=== PATIENT | male | born 1960 | race Hispanic/Latino ===

== ENCOUNTER 2016-06-17 18:34 | Emergency (ER) | payer MEDICAID ==
[2016-06-17] MEDS ORDERED: XYLOCAINE 1% HCL 20 ML MDV ONE (19:21)
--- NOTE | 2016-06-17 19:22 | ERPHSYRPT ---
- History of Present Illness Time Seen by Provider: 06/17/16 19:00 Source: patient, family Exam Limitations: language barrier Patient Subjective Stated Complaint: lt index laceration Triage Nursing Assessment: cut lt index finger x2 on a chainsaw. approx 2cm laceration to lt thumb pad and approx 1cm laceration to lt outer index pad. bleeding on time of arrival. radial pulse present. no other injury Occurred: just prior to arrival Method of Injury: incised Quality: constant, sharpness Severity of Pain-Max: moderate Severity of Pain-Current: moderate Extremities Pain Location: 2nd finger: left (pad laceration) Modifying Factors: Improves With: movement Associated Symptoms: none Allergies/Adverse Reactions: No Known Drug Allergies Allergy (Unverified 06/17/16 18:45) Home Medications: Aspirin 81 mg PO DAILY 12/14/14 [History] Amiodarone HCl 200 mg PO DAILY 06/17/16 [History] Losartan Potassium 25 mg PO DAILY 06/17/16 [History] Metoprolol Tartrate 25 mg [Lopressor 25MG Tab] 12.5 mg PO BID 06/17/16 [ History] Rivaroxaban [Xarelto] 20 mg PO DAILY 06/17/16 [History] Spironolactone 25 mg [Aldactone 25 MG] 25 mg PO DAILY 06/17/16 [History] Hx Tetanus, Diphtheria Vaccination/Date Given: No Hx Influenza Vaccination/Date Given: No Hx Pneumococcal Vaccination/Date Given: No Immunizations Up to Date: No - Review of Systems Constitutional: No Symptoms Eyes: No Symptoms Ears, Nose, & Throat: No Symptoms Respiratory: No Symptoms Cardiac: No Symptoms Abdominal/Gastrointestinal: No Symptoms Genitourinary Symptoms: No Symptoms Musculoskeletal: No Symptoms Skin: No Symptoms Neurological: No Symptoms Psychological: No Symptoms Endocrine: No Symptoms Hematologic/Lymphatic: Easy Bleeding (D/T anticoagulant use) Immunological/Allergic: No Symptoms - Past Medical History Pertinent Past Medical History: Yes Neurological History: No Pertinent History ENT History: No Pertinent History Cardiac History: Arrhythmia, Hypertension, Other Respiratory History: No Pertinent History Endocrine Medical History: No Pertinent History Musculoskeletal History: No Pertinent History GI Medical History: No Pertinent History History: No Pertinent History Psycho-Social History: No Pertinent History Male Reproductive Disorders: No Pertinent History Other Medical History: unknown cardiac valve problems - Past Surgical History Past Surgical History: Yes Cardiac: CABG - Social History Smoking Status: Current every day smoker Exposure to second hand smoke: Yes Drug Use: none Patient Lives Alone: No - Nursing Vital Signs Nursing Vital Signs: Initial Vital Signs Temperature 98.8 F Temperature Source Oral Pulse Rate 70 Respiratory Rate 18 Blood Pressure [Right Arm] 129/72 Pain Intensity 2 - Physical Exam General Appearance: mild distress Eyes, Ears, Nose, Throat Exam: normal ENT inspection, pharynx normal Neck Exam: normal inspection, non-tender, supple, full range of motion Cardiovascular/Respiratory Exam: chest non-tender, normal breath sounds, regular rate/rhythm Abdominal Exam: non-tender, soft, no organomegaly Back Exam: normal inspection, normal range of motion Shoulder Exam: normal inspection, non-tender, no evidence of injury, normal ROM Elbow/Forearm Exam: normal inspection, non-tender, no evidence of injury, normal ROM Wrist Exam: normal inspection, non-tender, no evidence of injury, normal ROM Hand Exam: normal ROM, laceration (3 cm left index fingertip pad. No germinal matrix involvement) Neuro/Tendon Exam: normal sensation, normal motor functions, normal tendon functions, responds to pain, no evidence tendon injury Mental Status Exam: alert, oriented x 3, cooperative Skin Exam: normal color, warm, dry, laceration SpO2 Interpretation: normal SpO2: 97 Oxygen Delivery: Room Air Procedures - Laceration/Wound Repair Finger Wound Location: Left Wound Length (cm): 3 Wound's Depth, Shape: flap Wound Explored: clean Irrigated: Yes (saline and Hibiclens) Hibiclens Prep: Yes Anesthesia: digital block, 1% Lidocaine Volume Anesthetic (ccs): 6 Wound Debrided: minimal Wound Repaired With: sutures Suture Size/Type: 4-0 Number of Sutures: 7 Layer Closure?: No Sterile Dressing Applied?: Yes Splint Applied?: Yes Sling Applied?: No - Course Nursing assessment & vital signs reviewed: Yes - Radiology Exams Hand X-ray Interpretation: Interpreted by me, Reviewed by me, No Fracture ( Questionable lucency oblique in proximal phalanx left index finger, but doubtful Fx.) Ordered Tests: Active Orders 24 hr Category Date Time Status FINGER(S) Stat Exams 06/17/16 18:43 Taken - Progress Progress: improved Will see patient in: other (PCP 14 days for suture removal) Counseled pt/family regarding: diagnosis, need for follow-up, rad results - Departure Time of Disposition: 19:40 Departure Disposition: Home Clinical Impression: Finger laceration Qualifiers: Encounter type: initial encounter Qualified Code(s): S61.219A - Laceration without foreign body of unspecified finger without damage to nail, initial encounter Condition: Stable Critical Care Time: No Instructions: Care for a Laceration After Repair, Laceration Repair -- Finger Prescriptions: Cephalexin Mh 500 mg [Keflex 500 mg] 1 cap PO BID #14 capsule Hydrocodone Bit/Acetaminophen [[place] 5-325 Tablet] 1 each PO Q4-6HPRN PRN #20 tablet PRN Reason: Pain
[2016-06-17] MEDS ORDERED: BACIGUENT PACKET ONE (19:40)
[2016-06-17] MEDS ORDERED: Norco 10/325 MG Tablet PO ONE (19:46)
[2016-06-17] MEDS ORDERED: Adacel Vial IM ONE ×2 (19:46→19:49)
[2016-06-17] MEDS ORDERED: Norco 10/325 MG Tablet ONE (19:49)
[2016-06-17] MEDS ORDERED: BACIGUENT PACKET TP ONE (19:55)
[2016-06-17] MEDS ORDERED: XYLOCAINE 1% HCL 20 ML MDV IJ ONE (19:55)
[2016-06-17 20:05] VITALS: BP 110/51; PULSE 60; O2SAT 96
--- NOTE | 2016-06-18 08:44 | XRAY ---
Indication: Laceration. Comparison: None 3 views of the left second finger demonstrate overlying bandage material with small spur base of the proximal phalanx, moderate first metacarpal multangular degenerative changes, and tiny soft tissue foreign body at the base of the thumb. No other bony, articular, or soft tissue abnormalities.
== END 2016-06-17 20:05 | disposition home or self-care (01) ==
LOC: ED 18:34
PROC: 0HQGXZZ Repair Left Hand Skin, External Approach (ICD-10-PCS; principal; 2016-06-17)
DX: S61.211A Laceration without foreign body of left index finger without damage to nail, initial encounter (principal); S61.012A Laceration without foreign body of left thumb without damage to nail, initial encounter; W29.3XXA Contact with powered garden and outdoor hand tools and machinery, initial encounter
CPT/HCPCS: 12002; 73140; 90471; 90715; 99284; A9270-GY

== ENCOUNTER 2016-07-03 18:40 | Emergency (ER) | payer MEDICAID | END 2016-07-03 19:10 | disposition left against medical advice (07) | LOC: ED 18:40 | DX: Z53.9 Procedure and treatment not carried out, unspecified reason (principal) ==

== ENCOUNTER 2016-07-04 15:59 | Emergency (ER) | payer MEDICAID ==
--- NOTE | 2016-07-04 16:45 | ERPHSYRPT ---
- History of Present Illness Time Seen by Provider: 07/04/16 16:39 Source: patient Patient Subjective Stated Complaint: PT REPORTS HAVING SUTURES PLACED-STATES IT IS TIME FOR THEM TO BE REMOVED-DENIES PAIN-DENEIS DRAINAGE Triage Nursing Assessment: PT ALERT ET ANSWERING ALL QUESTIONS CORRECTLY- SUTURES NOTED TO LEFT FINGER Physician History: CC: suture removal Hx: 55 y/o male with sutures in left index finger for two weeks. He is here for removal. Tetanus vaccine was already given. No sign of infection. No other complaints. No N/T/W. Allergies/Adverse Reactions: No Known Drug Allergies Allergy (Verified 07/04/16 16:30) Home Medications: Aspirin 81 mg PO DAILY 12/14/14 [History] Amiodarone HCl 200 mg PO DAILY 06/17/16 [History] Losartan Potassium 25 mg PO DAILY 06/17/16 [History] Metoprolol Tartrate 25 mg [Lopressor 25MG Tab] 12.5 mg PO BID 06/17/16 [ History] Rivaroxaban [Xarelto] 20 mg PO DAILY 06/17/16 [History] Spironolactone 25 mg [Aldactone 25 MG] 25 mg PO DAILY 06/17/16 [History] Hx Tetanus, Diphtheria Vaccination/Date Given: Yes Hx Influenza Vaccination/Date Given: No Hx Pneumococcal Vaccination/Date Given: No Immunizations Up to Date: Yes - Review of Systems Constitutional: No Fever - Past Medical History Pertinent Past Medical History: Yes Neurological History: No Pertinent History ENT History: No Pertinent History Cardiac History: Arrhythmia, Hypertension, Other Respiratory History: No Pertinent History Endocrine Medical History: No Pertinent History Musculoskeletal History: No Pertinent History GI Medical History: No Pertinent History History: No Pertinent History Psycho-Social History: No Pertinent History Male Reproductive Disorders: No Pertinent History Other Medical History: unknown cardiac valve problems - Past Surgical History Past Surgical History: Yes Cardiac: CABG - Social History Smoking Status: Current every day smoker Exposure to second hand smoke: Yes Drug Use: none Patient Lives Alone: No - Nursing Vital Signs Nursing Vital Signs: Initial Vital Signs Temperature 97.7 F Temperature Source Oral Pulse Rate 63 Respiratory Rate 22 Blood Pressure [Right Arm] 117/64 Pain Intensity 0 - Physical Exam General Appearance: alert Eyes, Ears, Nose, Throat Exam: moist mucous membranes Cardiovascular/Respiratory Exam: regular rate/rhythm Mental Status Exam: alert, oriented x 3, cooperative Skin Exam: warm, dry SpO2: 96 Oxygen Delivery: Room Air Comments: left index finger has healing lacerations with sutures in place. ROm intact. Intact light touch sensation. No sign of infection. - Course Nursing assessment & vital signs reviewed: Yes Ordered Tests: Active Orders 24 hr Category Date Time Status Wound Care STAT Care 07/04/16 16:41 Active - Progress Progress Note: 07/04/16 16:44 Wound instr. Counseled pt/family regarding: diagnosis, need for follow-up - Departure Time of Disposition: 16:44 Departure Disposition: Home Clinical Impression: Visit for suture removal Condition: Stable Critical Care Time: No Referrals: Dionicio Weston MD [Primary Care Provider] - DOCTOR,NO FAMILY [NON-STAFF PHY W/O PRIVILEGES] - Instructions: Suture Removal Additional Instructions: Return for problems or concerns.
[2016-07-04 16:52] VITALS: BP 120/70; PULSE 70; O2SAT 97
== END 2016-07-04 16:52 | disposition home or self-care (01) ==
LOC: ED 15:59
DX: Z48.02 Encounter for removal of sutures (principal)
CPT/HCPCS: 99281

== ENCOUNTER 2017-05-22 10:43 | Emergency (ER) | payer MEDICAID, OTHER ==
[2017-05-22 10:58] VITALS: O2SAT 98
[2017-05-22] MEDS ORDERED: XYLOCAINE 1% HCL 20 ML MDV IJ ONE (11:13)
[2017-05-22] MEDS ORDERED: BACIGUENT PACKET TP ONE (11:13)
[2017-05-22] MEDS ORDERED: CLEOCIN 150 MG CAPSULE PO ONE (11:17)
[2017-05-22] MEDS ORDERED: BACIGUENT PACKET ONE (11:20)
[2017-05-22] MEDS ORDERED: CLEOCIN 150 MG CAPSULE ONE (11:21)
[2017-05-22] MEDS ORDERED: XYLOCAINE 1% HCL 20 ML MDV ONE (11:21)
--- NOTE | 2017-05-22 11:25 | ERPHSYRPT ---
- History of Present Illness Time Seen by Provider: 05/22/17 11:10 Source: patient Exam Limitations: no limitations Patient Subjective Stated Complaint: Pt states "I Am not sure what I did, but I injured it 3 days ago.. I am not sure if there is anything in there or not." Triage Nursing Assessment: Pt alert and oriented X 3, skin pwd Pt ambulates without any difficulty, able to speak in clear full sentences. Right little finger has two wounds on it, red, swollen. Physician History: THREE DAYS AGO PT WAS IN HIS YARD AND A STICK PUNCTURED HIS RIGHT LITTLE FINGER WITH RESULTANT TENDERNESS, ERYTHEMA AND SWELLING. PT TRIED TO GET THE STICK OUT BUT COULD NOT GET ALL OF IT OUT. PT DENIES FEVER, CHILLS, DIAPHORESIS, NAUSEA, VOMITING, CHEST PAIN. Allergies/Adverse Reactions: No Known Drug Allergies Allergy (Verified 07/04/16 16:30) Home Medications: Aspirin 81 mg PO DAILY 12/14/14 [History] Amiodarone HCl 200 mg PO DAILY 06/17/16 [History] Losartan Potassium 25 mg PO DAILY 06/17/16 [History] Metoprolol Tartrate 25 mg [Lopressor 25MG Tab] 12.5 mg PO BID 06/17/16 [ History] Rivaroxaban [Xarelto] 20 mg PO DAILY 06/17/16 [History] Spironolactone 25 mg [Aldactone 25 MG] 25 mg PO DAILY 06/17/16 [History] Hx Tetanus, Diphtheria Vaccination/Date Given: Yes Hx Influenza Vaccination/Date Given: Yes Hx Pneumococcal Vaccination/Date Given: Yes Immunizations Up to Date: Yes - Review of Systems Constitutional: No Fever, No Chills Cardiac: No Chest Pain Abdominal/Gastrointestinal: No Vomiting Musculoskeletal: Other (SWELLING, TENDERNESS AND ERYTHEMA OF RIGHT SMALL FINGER) All Other Systems: Reviewed and Negative - Past Medical History Pertinent Past Medical History: Yes Neurological History: No Pertinent History ENT History: No Pertinent History Cardiac History: Arrhythmia, Hypertension, Other Respiratory History: No Pertinent History Endocrine Medical History: No Pertinent History Musculoskeletal History: No Pertinent History GI Medical History: No Pertinent History History: No Pertinent History Psycho-Social History: No Pertinent History Male Reproductive Disorders: No Pertinent History Other Medical History: unknown cardiac valve problems - Past Surgical History Past Surgical History: Yes Cardiac: CABG - Social History Smoking Status: Current every day smoker How long have you smoked: years Exposure to second hand smoke: Yes Drug Use: none Patient Lives Alone: No - Nursing Vital Signs Nursing Vital Signs: Initial Vital Signs Temperature 98.2 F 05/22/17 10:53 Pulse Rate 60 05/22/17 10:53 Respiratory Rate 18 05/22/17 10:53 Blood Pressure 115/72 05/22/17 10:53 O2 Sat by Pulse Oximetry 98 05/22/17 10:53 Pain Scale Pain Intensity 4 - Physical Exam General Appearance: alert Shoulder Exam: normal ROM Elbow/Forearm Exam: normal ROM Wrist Exam: normal ROM Hand Exam: normal ROM, swelling (DISTAL PHALYNX OF RIGHT SMALL FINGER IS MILDLY TENDER, EDEMATOUS AND ERYTHEMATOUS BUT WITH GOOD CAPILLARY REFILL AND SENSATION. ) Mental Status Exam: alert, cooperative SpO2 Interpretation: normal SpO2: 98 Oxygen Delivery: Room Air - Course Nursing assessment & vital signs reviewed: Yes - Radiology Exams Right Other X-ray Interpretation: Interpreted by me (NO F.B. SEEN(POST SPLINTER REMOVAL) OR FX OF RIGHT SMALL FINGER.) Ordered Tests: Active Orders 24 hr Category Date Time Status Wound Care STAT Care 05/22/17 11:13 Active FINGER(S) Stat Exams 05/22/17 12:04 Taken Medication Summary Discontinued Medications Generic Name Dose Route Start Last Admin Trade Name Melinda PRN Reason Stop Dose Admin Bacitracin 0.9 gm 05/22/17 11:13 05/22/17 11:27 Baciguent Packet TP 05/22/17 11:14 0.9 gm STAT ONE Administration Bacitracin Confirm 05/22/17 11:20 Baciguent Packet Administered 05/22/17 11:21 Dose 1 gm .ROUTE .STK-MED ONE Ceftriaxone Sodium 1,000 mg 05/22/17 11:42 05/22/17 11:46 Rocephin 1000 Mg Inj IM 05/22/17 11:43 1,000 mg STAT ONE Administration Ceftriaxone Sodium Confirm 05/22/17 11:44 Rocephin 1000 Mg Inj Administered 05/22/17 11:45 Dose 1,000 mg .ROUTE .STK-MED ONE Clindamycin HCl 300 mg 05/22/17 11:17 05/22/17 11:27 Cleocin 150 Mg Capsule PO 05/22/17 11:18 300 mg STAT ONE Administration Clindamycin HCl Confirm 05/22/17 11:21 Cleocin 150 Mg Capsule Administered 05/22/17 11:22 Dose 300 mg .ROUTE .STK-MED ONE Lidocaine HCl 5 ml 05/22/17 11:13 05/22/17 11:27 Xylocaine 1% Hcl 20 Ml Mdv IJ 05/22/17 11:14 5 ml STAT ONE Administration Lidocaine HCl Confirm 05/22/17 11:21 Xylocaine 1% Hcl 20 Ml Mdv Administered 05/22/17 11:22 Dose 1 ml .ROUTE .STK-MED ONE - Progress Progress Note: 05/22/17 11:49 LATERAL ASPECT OF THE DISTAL PHALYNX OF THE RIGHT SMALL FINGER: 1% LIDOCAINE, HIBICLENS, STERILE WATER, #11 SCALPEL, 1.5 CM WOODEN SPLINTER REMOVED WITH FORCEPS, IRRIGATION WITH STERILE WATER. - Departure Time of Disposition: 12:07 Departure Disposition: Home Clinical Impression: CELLULITIS OF THE RIGHT SMALL FINGER, SPLINTER REMOVAL FROM RIGHT SMALL FINGER Condition: Stable Critical Care Time: No Instructions: Cellulitis (Skin Infection), Adult (DC) Additional Instructions: FOLLOW UP WITH PRIVATE DOCTOR TOMORROW. NEOSPORIN & BANDAGE DAILY TO RIGHT SMALL FINGER WOUND FOR THE NEXT 10 DAYS. KEEP CLEAN & DRY. Prescriptions: Clindamycin HCl 300 mg PO Q6H #40 capsule
[2017-05-22] MEDS ORDERED: Rocephin 1000 MG INJ IM ONE (11:42)
[2017-05-22] MEDS ORDERED: Rocephin 1000 MG INJ ONE (11:44)
[2017-05-22 11:52] VITALS: PULSE 62
[2017-05-22 12:10] VITALS: BP 116/70
--- NOTE | 2017-05-22 22:52 | XRAY ---
Indication: Laceration. Comparison: None 3 views of the right 5th finger demonstrates distal laceration. No other bony, articular, or soft tissue abnormalities.
== END 2017-05-22 12:16 | disposition home or self-care (01) ==
LOC: ED 10:43
DX: L03.011 Cellulitis of right finger (principal); S60.456A Superficial foreign body of right little finger, initial encounter
CPT/HCPCS: 73140; 96372; 99283; J0696; A9270-GY

== ENCOUNTER 2021-01-19 07:07 | Observation (INO) | payer SELFPAY ==
[2021-01-19] MEDS ORDERED: Sodium Chloride 0.9% 1000 ML 1,000 ML IV SCH ×2 (07:15→22:45)
[2021-01-19] MEDS ORDERED: BABY ASPIRIN 81 MG CHEW PO ONE (07:15)
[2021-01-19] MEDS ORDERED: DUONEB 0.5-3 MG/3 ml Neb IH ONE ×2 (07:15→07:19)
[2021-01-19] MEDS ORDERED: solu-MEDROL 125 MG, Sterile H2O 10 ml 2 ML IV ONE ×2 (07:19)
[2021-01-19 07:36] LABS: Absolute Neutrophil Ct (ANC) 11.43 (1.4-6.9); BASOPHIL % 0.4 % (0.0-0.4); Basophil (Absolute #) 0.05 (0-0.4); Eosinophil % 0.2 % (0.00-5.0); Eosinophil (Absolute #) 0.03 (0-0.5); Hematocrit 50.1 % (42-50); Hemoglobin 16.5 gm/dl (12.5-18.0); Lymphocyte (Absolute #) 0.91 (1.0-4.6); Lymphocytes % 6.5 % (24.0-44.0); Mean Cell Volume 91.9 fl (78-100); Mean Corpuscular Hemoglobin 30.3 pg (26-32); Mean Corpuscular Hgb Concent. 32.9 g/dl (32-36); Mean Platelet Volume 10.3 fl (7.5-11.0); Monocyte (Absolute #) 1.51 (0.0-1.3); Monocytes % 10.8 % (0.0-12.0); Neutrophil % 82.1 % (36.0-66.0); Platelet Count 251 K/mm3 (150-450); Red Blood Count 5.45 M/mm3 (4.1-5.6); Red Cell Distribution Width 13.5 % (11.5-14.0); White Blood Count 13.9 K/mm3 (4.0-10.5)
[2021-01-19] MEDS ORDERED: Sodium Chloride 0.9% 1000 ML 1,000 ML ONE (07:38)
[2021-01-19] MEDS ORDERED: solu-MEDROL ONE ×2 (07:38→17:36)
[2021-01-19] MEDS ORDERED: BABY ASPIRIN 81 MG CHEW ONE (07:38)
[2021-01-19] MEDS ORDERED: Sterile H2O 10 ml IJ ONE (07:38)
--- NOTE | 2021-01-19 07:49 | XRAY ---
Indication: Cough and short of breath. Suspect Covid 19. Comparison: March 25, 2013. Portable apical lordotic chest again hyperinflated with new subtle left midlung patchy interstitial opacity. Remaining lungs clear. Heart not enlarged with interval cardiac valve replacement surgery. Bony thorax intact.
--- NOTE | 2021-01-19 07:50 | ERPHSYRPT ---
- History of Present Illness Time Seen by Provider: 01/19/21 07:15 Source: patient Exam Limitations: no limitations Patient Subjective Stated Complaint: Patient c/o cough and SOB that started on 01/17/21. Denies fever, N/V, body aches, fatigue, changes/loss of taste or smell. Does state that he has chest pain in the center of his chest when he coughs. He rates this pain as a 2-3 on 0-10 scale. Triage Nursing Assessment: Patient ambulated back to ED. He is alert and oriented and able to answer questions appropriately. Patient sitting up in bed due to increased SOB when lying flat. Wheezes noted thoughrought lung stone. Non-productive cough noted. Physician History: Patient is a 60-year-old white male who presents with a complaint of shortness of breath and cough for 3 days. He denies fever chills sweats he denies loss of taste or smell or headache. He does have a history of valve replacement x2 and is on Xarelto. He has a history of hypertension. His pain is substernal does not radiate and is increased by deep breath or cough. He is a pack-a-day smoker for many years Timing/Duration: day(s) (3) Activities at Onset: none Severity of Dyspnea-Max: moderate Severity of Dyspnea-Current: moderate Possible Cause: occasional episodes Modifying Factors: Improves With: coughing, deep breath, lying down Associated Symptoms: cough, chest pain/discomfort, wheezing, weakness, painful breathing Allergies/Adverse Reactions: No Known Drug Allergies Allergy (Verified 01/19/21 07:21) Home Medications: Aspirin 81 mg PO DAILY 12/14/14 [History] Amiodarone HCl 200 mg PO DAILY 06/17/16 [History] Losartan Potassium 25 mg PO DAILY 06/17/16 [History] Rivaroxaban [Xarelto] 20 mg PO DAILY 06/17/16 [History] Spironolactone 25 mg [Aldactone 25 MG] 25 mg PO DAILY 06/17/16 [History] Metoprolol Succinate 50 mg [Toprol Xl 50 MG] 50 mg PO DAILY 01/19/21 [History] Hx Tetanus, Diphtheria Vaccination/Date Given: Yes Hx Influenza Vaccination/Date Given: No Hx Pneumococcal Vaccination/Date Given: No Immunizations Up to Date: Yes Travel Risk - International Travel Have you traveled outside of the country in past 3 weeks: No - Coronavirus Screening Are you exhibiting any of the following symptoms?: Yes Symptoms: Cough: New Onset, Shortness of Breath Close contact with a COVID-19 positive Pt in past 14-21 Days: No - Vaccine Status Have you recieved a Covid-19 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: 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 - Vaccination Dates Dates if Unknown: unknown Comment: States took 2 shots at the [facility] but is unsure of the supervisor [employer] - Review of Systems Constitutional: No Fever, No Chills Eyes: No Symptoms Ears, Nose, & Throat: No Symptoms Respiratory: Cough, Dyspnea, Wheezing Cardiac: Chest Pain, No Edema, No Syncope Abdominal/Gastrointestinal: No Abdominal Pain, No Nausea, No Vomiting, No Diarrhea Genitourinary Symptoms: No Dysuria Musculoskeletal: No Back Pain, No Neck Pain Skin: No Rash Neurological: No Dizziness, No Focal Weakness, No Sensory Changes Psychological: No Symptoms Endocrine: No Symptoms All Other Systems: Reviewed and Negative - Past Medical History Pertinent Past Medical History: Yes Neurological History: No Pertinent History ENT History: No Pertinent History Cardiac History: Arrhythmia, Coronary Artery Disease, Hypertension, Other Respiratory History: No Pertinent History Endocrine Medical History: No Pertinent History Musculoskeletal History: No Pertinent History GI Medical History: No Pertinent History History: No Pertinent History Psycho-Social History: No Pertinent History Male Reproductive Disorders: No Pertinent History Other Medical History: unknown cardiac valve problems - Past Surgical History Past Surgical History: Yes Cardiac: CABG - Social History Smoking Status: Current every day smoker How long have you smoked: 40 Exposure to second hand smoke: Yes Drug Use: none Patient Lives Alone: No - Nursing Vital Signs Nursing Vital Signs: Initial Vital Signs Temperature 97.5 F 01/19/21 07:08 Pulse Rate 90 01/19/21 07:08 Respiratory Rate 24 01/19/21 07:08 Blood Pressure 140/78 01/19/21 07:08 O2 Sat by Pulse Oximetry 94 L 01/19/21 07:08 Pain Scale Pain Intensity 3 - Physical Exam General Appearance: mild distress Eye Exam: PERRL/EOMI Ears, Nose, Throat Exam: hearing grossly normal, normal ENT inspection Neck Exam: normal inspection, supple Respiratory Exam: respiratory distress, airway intact, diminished breath sounds, accessory muscle use, prolonged expirations, rhonchi, wheezing Cardiovascular/Chest Exam: normal heart sounds, regular rate/rhythm, other (Median sternotomy scar) Abdominal/Gastrointestinal Exam: soft, normal bowel sounds, tenderness Rectal Exam: deferred Extremity Exam: non-tender, normal range of motion, normal inspection Neurologic Exam: alert, oriented x 3, cooperative, nml station & gait Skin Exam: normal color, warm, dry Lymphatic Exam: No adenopathy SpO2 Interpretation: normal SpO2: 94 O2 Delivery: Room Air - Course Nursing assessment & vital signs reviewed: Yes - Radiology Exams Chest X-ray Interpretation: Reviewed by me, Pneumonia (Developing infiltrate in the left middle lobe) Ordered Tests: Active Orders 24 hr Category Date Time Status EKG-ER Only STAT Care 01/19/21 07:15 Active IV Insertion STAT Care 01/19/21 07:15 Active CHEST 1 VIEW (PORTABLE) Stat Exams 01/19/21 07:38 Completed BLOOD CULTURE Stat Lab 01/19/21 07:59 Received CBC W DIFF Stat Lab 01/19/21 07:15 Completed CMP Stat Lab 01/19/21 07:15 Completed D-DIMER QUANTITATIVE Stat Lab 01/19/21 07:15 Completed LIPASE Stat Lab 01/19/21 07:15 Completed Lactic Acid Stat Lab 01/19/21 07:15 Completed Lactic Acid Stat Lab 01/19/21 07:19 Ordered MAGNESIUM Stat Lab 01/19/21 07:15 Completed NT PRO BNP Stat Lab 01/19/21 07:15 Completed PROTIME WITH INR Stat Lab 01/19/21 07:15 Completed TROPONIN Q3H Lab 01/19/21 07:15 Completed TROPONIN Q3H Lab 01/19/21 10:30 Ordered TROPONIN Q3H Lab 01/19/21 13:30 Ordered TROPONIN Q3H Lab 01/19/21 16:30 Ordered TROPONIN Q3H Lab 01/19/21 19:30 Ordered UA W/RFX UR CULTURE Stat Lab 01/19/21 07:16 Ordered Respiratory Therapy Assessment ONCE RT 01/19/21 07:43 Active Medication Summary Generic Name Dose Route Start Last Admin Trade Name Freq PRN Reason Stop Dose Admin Sodium Chloride 1,000 mls @ 50 mls/hr 01/19/21 07:15 01/19/21 07:40 Sodium Chloride 0.9% 1000 Ml IV 02/18/21 07:14 50 mls/hr .Q20H ANJUM Administration Ceftriaxone Sodium/Dextrose 1 g in 50 mls @ 100 mls/hr 01/19/21 08:26 01/19/21 08:42 Rocephin 1 Gm-D5w 50 Ml Bag IV 01/19/21 08:55 100 mls/hr STAT STA 100 mls/hr Administration Discontinued Medications Generic Name Dose Route Start Last Admin Trade Name Melinda PRN Reason Stop Dose Admin Albuterol/Ipratropium Confirm 01/19/21 07:15 Ipratropium/Albuterol Sulfate 3 Ml Ampul.Neb Administered 01/19/21 07:16 Dose 3 ml IH .STK-MED ONE Albuterol/Ipratropium 3 ml 01/19/21 07:19 01/19/21 07:10 Ipratropium/Albuterol Sulfate 3 Ml Ampul.Neb IH 01/19/21 07:20 3 ml STAT ONE Administration Aspirin 324 mg 01/19/21 07:15 01/19/21 07:41 Aspirin 81 Mg Tab.Chew PO 01/19/21 07:16 324 mg STAT ONE Administration Aspirin Confirm 01/19/21 07:38 Aspirin 81 Mg Tab.Chew Administered 01/19/21 07:39 Dose 324 mg .ROUTE .STK-MED ONE Methylprednisolone Sodium 0 mg 01/19/21 07:19 01/19/21 07:40 Succinate 125 mg/ Sterile IV 01/19/21 07:20 125 mg Water 2 ml STAT ONE Administration Ceftriaxone Sodium/Dextrose Confirm 01/19/21 08:41 Rocephin 1 Gm-D5w 50 Ml Bag Administered 01/19/21 08:42 Dose 1 g in 50 mls @ ud IV .STK-MED ONE Methylprednisolone Sodium Succinate Confirm 01/19/21 07:38 Methylprednis Sod Succ 125 Mg/2 Ml Vial Administered 01/19/21 07:39 Dose 125 mg .ROUTE .STK-MED ONE Sterile Water Confirm 01/19/21 07:38 Water For Injection,Sterile 10 Ml Vial Administered 01/19/21 07:39 Dose 10 ml IJ .STK-MED ONE Lab/Rad Data: Laboratory Result Diagrams 01/19/21 07:15 01/19/21 07:15 Laboratory Results 01/19/21 01/19/21 01/19/21 Range/Units 07:34 07:15 07:15 WBC (4.0-10.5) K/mm3 RBC (4.1-5.6) M/mm3 Hgb (12.5-18.0) gm/dl Hct (42-50) % MCV (78-100) fl MCH (26-32) pg MCHC (32-36) g/dl RDW (11.5-14.0) % Plt Count (150-450) K/mm3 MPV (7.5-11.0) fl Gran % (36.0-66.0) % Eos # (Auto) (0-0.5) Absolute Lymphs (auto) (1.0-4.6) Absolute Monos (auto) (0.0-1.3) Lymphocytes % (24.0-44.0) % Monocytes % (0.0-12.0) % Eosinophils % (0.00-5.0) % Basophils % (0.0-0.4) % Absolute Granulocytes (1.4-6.9) Basophils # (0-0.4) PT 16.6 H (9.4-12.5) SECONDS INR 1.41 (0.8-3.0) D-Dimer 314 (215-500) ng/mL Sodium (137-145) mmol/L Potassium (3.5-5.1) mmol/L Chloride (98-107) mmol/L Carbon Dioxide (22-30) mmol/L Anion Gap (5-15) MEQ/L BUN (9-20) mg/dL Creatinine (0.66-1.25) mg/dL Estimated GFR ML/MIN Glucose (74-106) mg/dL Lactic Acid (0.4-2.0) Calcium (8.4-10.2) mg/dL Magnesium (1.6-2.3) mg/dL Total Bilirubin (0.2-1.3) mg/dL AST (17-59) U/L ALT (0-50) U/L Alkaline Phosphatase (38-126) U/L Troponin I < 0.012 (0.000-0.034) ng/mL NT-Pro-B Natriuret Pep (0-900) pg/mL Serum Total Protein (6.3-8.2) g/dL Albumin (3.5-5.0) g/dL Lipase (23-300) U/L Influenza Type A Ag NEGATIVE (NEGATIVE) Influenza Type B Ag NEGATIVE (NEGATIVE) RSV (PCR) POSITIVE (Negative) SARS-CoV-2 (PCR) NEGATIVE (NEGATIVE) Slides for Path Review 01/19/21 01/19/21 01/19/21 Range/Units 07:15 07:15 07:15 WBC 13.9 H (4.0-10.5) K/mm3 RBC 5.45 (4.1-5.6) M/mm3 Hgb 16.5 (12.5-18.0) gm/dl Hct 50.1 H (42-50) % MCV 91.9 (78-100) fl MCH 30.3 (26-32) pg MCHC 32.9 (32-36) g/dl RDW 13.5 (11.5-14.0) % Plt Count 251 (150-450) K/mm3 MPV 10.3 (7.5-11.0) fl Gran % 82.1 H (36.0-66.0) % Eos # (Auto) 0.03 (0-0.5) Absolute Lymphs (auto) 0.91 L (1.0-4.6) Absolute Monos (auto) 1.51 H (0.0-1.3) Lymphocytes % 6.5 L (24.0-44.0) % Monocytes % 10.8 (0.0-12.0) % Eosinophils % 0.2 (0.00-5.0) % Basophils % 0.4 (0.0-0.4) % Absolute Granulocytes 11.43 H (1.4-6.9) Basophils # 0.05 (0-0.4) PT (9.4-12.5) SECONDS INR (0.8-3.0) D-Dimer (215-500) ng/mL Sodium 132 L (137-145) mmol/L Potassium 4.9 (3.5-5.1) mmol/L Chloride 100 (98-107) mmol/L Carbon Dioxide 23 (22-30) mmol/L Anion Gap 14.5 (5-15) MEQ/L BUN 15 (9-20) mg/dL Creatinine 1.12 (0.66-1.25) mg/dL Estimated GFR > 60.0 ML/MIN Glucose 108 H (74-106) mg/dL Lactic Acid 1.1 (0.4-2.0) Calcium 9.3 (8.4-10.2) mg/dL Magnesium 2.2 (1.6-2.3) mg/dL Total Bilirubin 1.40 H (0.2-1.3) mg/dL AST 34 (17-59) U/L ALT 16 (0-50) U/L Alkaline Phosphatase 75 (38-126) U/L Troponin I (0.000-0.034) ng/mL NT-Pro-B Natriuret Pep 531 (0-900) pg/mL Serum Total Protein 8.1 (6.3-8.2) g/dL Albumin 4.7 (3.5-5.0) g/dL Lipase 31 (23-300) U/L Influenza Type A Ag (NEGATIVE) Influenza Type B Ag (NEGATIVE) RSV (PCR) (Negative) SARS-CoV-2 (PCR) (NEGATIVE) Slides for Path Review YES - Progress Progress: improved Air Movement: good Blood Culture(s) Obtained: Yes Antibiotics given: Yes Discussed with : Eric Will see patient in: hospital (observation) - Departure Departure Disposition: Observation Clinical Impression: COPD exacerbation Condition: Stable Critical Care Time: No Referrals: DOCTOR,NO FAMILY [Primary Care Provider] - Follow up/PCP as directed Instructions: Chronic Obstructive Pulmonary Disease
[2021-01-19 08:01] LABS: ALBUMIN 4.7 g/dL (3.5-5.0); ALKALINE PHOSPHATASE 75 U/L (38-126); ANION GAP 14.5 MEQ/L (5-15); BLOOD UREA NITROGEN 15 mg/dL (9-20); CHLORIDE 100 mmol/L (98-107); Calcium 9.3 mg/dL (8.4-10.2); Carbon Dioxide 23 mmol/L (22-30); Creatinine 1 1.12 mg/dL (0.66-1.25); EST GLOMERULAR FILTRATION RATE > 60.0 ML/MIN; Glucose 108 mg/dL (74-106); LIPASE 31 U/L (23-300); MAGNESIUM 2.2 mg/dL (1.6-2.3); NT PRO BNP 531 pg/mL (0-900); Potassium 4.9 mmol/L (3.5-5.1); SGOT/AST 34 U/L (17-59); SGPT/ALT 16 U/L (0-50); SODIUM 132 mmol/L (137-145); Total Protein 8.1 g/dL (6.3-8.2)
[2021-01-19 08:16] LABS: INFLUENZA A NEGATIVE (NEGATIVE); INFLUENZA B NEGATIVE (NEGATIVE); SARS-CoV-2 Xpert Express NEGATIVE (NEGATIVE)
[2021-01-19 08:22] LABS: RESPIRATORY SYNCTIAL VIRUS POSITIVE (Negative)
[2021-01-19 08:23] LABS: INR 1.41 (0.8-3.0); PROTIME 16.6 SECONDS (9.4-12.5)
[2021-01-19] MEDS ORDERED: ROCEPHIN 1 Gm-D5w 50 ml Bag** 1 G/50 ML IVPB IV STA (08:26)
[2021-01-19 08:31] LABS: Slide Review 1 YES
[2021-01-19] MEDS ORDERED: ROCEPHIN 1 Gm-D5w 50 ml Bag** 1 G/50 ML IVPB IV ONE (08:41)
[2021-01-19] MEDS: Cozaar 50 MG PO SCH (12:32)
[2021-01-19] MEDS: PROVENTIL 2.5 MG/3 ML NEB IH SCH ×4 (12:32→22:05)
[2021-01-19] MEDS: Aldactone 25 MG PO SCH (12:33)
[2021-01-19] MEDS: XARELTO 10 MG TABLET PO SCH (12:33)
[2021-01-19] MEDS: Toprol Xl 50 MG PO SCH (12:33)
[2021-01-19] MEDS: Cordarone 200 MG PO SCH (12:33)
[2021-01-19] MEDS: solu-MEDROL 60 MG, Sterile H2O 10 ml 2 ML IV SCH ×6 (12:34→23:00)
[2021-01-19 19:31] LABS: Appearance SLIGHTLY CLOUDY (CLEAR); Bacteria NONE SEEN /HPF (NEGATIVE); Bilirubin NEGATIVE (NEGATIVE); Blood MODERATE Ery/ul (0-5); Glucose >=500 mg/dL (NEGATIVE); Ketones SMALL (NEGATIVE); Leukocyte Esterase NEGATIVE (NEGATIVE); Mucus SLIGHT /HPF (NEGATIVE); Nitrite NEGATIVE (NEGATIVE); Protein,Urine Dip 100 (Negative); Specific Gravity 1.024 (1.005-1.025); Urobilinogen 2 mg/dL (0-1); WBC 0-2 /HPF (0-5)
[2021-01-19] MEDS ORDERED: Robitussin-Dm Syrup PO PRN (22:41)
--- NOTE | 2021-01-19 23:19 | PCM.HP ---
History of Present Illness - Chief Complaint Chief Complaint: COPD EXACERBATION, RSV History of Present Illness: is a 60 year old male who presented to ER c/o cough and sob x 3 days, c/o chest pain mid sternal with cough,denies fever or loss of taste or smell.ER work up showed RSV left mid lobe pneumonia.Patient has Hx heart valve replacement and is an every day smoker. - Review of Systems Constitutional: Fatigue (from coughing) Eyes: No Symptoms Ears, Nose, & Throat: No Symptoms Respiratory: Cough, Short Of Breath, Wheezing Cardiac: Other (no chest pain on exertion,no edema) Abdominal/Gastrointestinal: No Symptoms Genitourinary Symptoms: No Symptoms Musculoskeletal: No Symptoms Skin: No Symptoms Neurological: No Symptoms Psychological: No Symptoms Endocrine: No Symptoms Hematologic/Lymphatic: No Symptoms, Other (is on blood thinner -heart) Medications & Allergies Home Medications: Home Medication List Aspirin 81 mg PO DAILY 12/14/14 [History Confirmed 01/19/21] Amiodarone HCl 200 mg PO DAILY 06/17/16 [History Confirmed 01/19/21] Losartan Potassium 25 mg PO DAILY 06/17/16 [History Confirmed 01/19/21] Rivaroxaban [Xarelto] 20 mg PO DAILY 06/17/16 [History Confirmed 01/19/21] Spironolactone 25 mg [Aldactone 25 MG] 25 mg PO DAILY 06/17/16 [History Confirmed 01/19/21] Metoprolol Succinate 50 mg [Toprol Xl 50 MG] 50 mg PO DAILY 01/19/21 [History Confirmed 01/19/21] Allergies/Adverse Reactions: Allergies Allergy/AdvReac Type Severity Reaction Status Date / Time No Known Drug Allergies Allergy Verified 01/19/21 07:21 - Past Medical History Past Medical History: Yes Neurological History: No Pertinent History ENT History: No Pertinent History Cardiac History: Arrhythmia, Coronary Artery Disease, Hypertension, Other Respiratory History: COPD Endocrine Medical History: No Pertinent History Musculoskelatal History: No Pertinent History GI Medical History: No Pertinent History History: No Pertinent History Pyscho-Social History: No Pertinent History Male Reproductive Disorders: No Pertinent History Comment: problems with 2 valves in his heart - Past Surgical History Past Surgical History: Yes Neuro Surgical History: No Pertinent History Cardiac History: CABG Respiratory Surgery: No Pertinent History GI Surgical History: No Pertinent History Genitourinary Surgical Hx: No Pertinent History Musculskeletal Surgical Hx: No Pertinent History Male Surgical History: No Pertinent History - Social History Smoking Status: Current every day smoker How long have you smoked: 40 Exposure to second hand smoke: Yes Alcohol: Occasionally Drug Use: none - Physical Exam Vital Signs: Vital Signs - 24 hr Temp Pulse Resp BP Pulse Ox 01/19/21 22:07 63 18 93 L 01/19/21 20:00 97.5 F 68 18 100/59 92 L 01/19/21 18:54 63 18 92 L 01/19/21 17:36 96 01/19/21 16:00 97.5 F 66 21 98/57 93 L 01/19/21 15:46 72 18 95 01/19/21 12:32 68 21 96 01/19/21 12:00 97.5 F 65 23 104/64 93 L 01/19/21 11:28 97.5 F 73 22 107/56 94 L 01/19/21 09:00 73 22 107/56 94 L 01/19/21 08:56 94 L 01/19/21 08:36 76 18 99/63 92 L 01/19/21 07:43 76 22 91 L 01/19/21 07:08 97.5 F 90 24 140/78 94 L General Appearance: no apparent distress Neurologic Exam: alert, oriented x 3, cooperative, normal mood/affect Eye Exam: eyes nml inspection Ears, Nose, Throat Exam: normal ENT inspection Neck Exam: normal inspection Respiratory Exam: rhonchi (scattered,loose), wheezing (eew throughout bilateral lungs) Cardiovascular Exam: regular rate/rhythm, murmur Gastrointestinal/Abdomen Exam: soft (nontender) Rectal Exam: not done Back Exam: normal inspection Extremity Exam: normal inspection Skin Exam: normal color, warm, dry Results - Labs Lab/Micro Results: Lab Results-Last 24 Hours 01/19/21 01/19/21 01/19/21 Range/Units 07:15 07:15 07:15 WBC 13.9 H (4.0-10.5) K/mm3 RBC 5.45 (4.1-5.6) M/mm3 Hgb 16.5 (12.5-18.0) gm/dl Hct 50.1 H (42-50) % MCV 91.9 (78-100) fl MCH 30.3 (26-32) pg MCHC 32.9 (32-36) g/dl RDW 13.5 (11.5-14.0) % Plt Count 251 (150-450) K/mm3 MPV 10.3 (7.5-11.0) fl Gran % 82.1 H (36.0-66.0) % Eos # (Auto) 0.03 (0-0.5) Absolute Lymphs (auto) 0.91 L (1.0-4.6) Absolute Monos (auto) 1.51 H (0.0-1.3) Lymphocytes % 6.5 L (24.0-44.0) % Monocytes % 10.8 (0.0-12.0) % Eosinophils % 0.2 (0.00-5.0) % Basophils % 0.4 (0.0-0.4) % Absolute Granulocytes 11.43 H (1.4-6.9) Basophils # 0.05 (0-0.4) PT (9.4-12.5) SECONDS INR (0.8-3.0) D-Dimer (215-500) ng/mL Sodium 132 L (137-145) mmol/L Potassium 4.9 (3.5-5.1) mmol/L Chloride 100 (98-107) mmol/L Carbon Dioxide 23 (22-30) mmol/L Anion Gap 14.5 (5-15) MEQ/L BUN 15 (9-20) mg/dL Creatinine 1.12 (0.66-1.25) mg/dL Estimated GFR > 60.0 ML/MIN Glucose 108 H (74-106) mg/dL Lactic Acid 1.1 (0.4-2.0) Calcium 9.3 (8.4-10.2) mg/dL Magnesium 2.2 (1.6-2.3) mg/dL Total Bilirubin 1.40 H (0.2-1.3) mg/dL AST 34 (17-59) U/L ALT 16 (0-50) U/L Alkaline Phosphatase 75 (38-126) U/L Troponin I (0.000-0.034) ng/mL NT-Pro-B Natriuret Pep 531 (0-900) pg/mL Serum Total Protein 8.1 (6.3-8.2) g/dL Albumin 4.7 (3.5-5.0) g/dL Lipase 31 (23-300) U/L Urine Color (YELLOW) Urine Appearance (CLEAR) Urine pH (5-6) Ur Specific [place] (1.005-1.025) Urine Protein (Negative) Urine Ketones (NEGATIVE) Urine Blood (0-5) Humphrey/ul Urine Nitrite (NEGATIVE) Urine Bilirubin (NEGATIVE) Urine Urobilinogen (0-1) mg/dL Ur Leukocyte Esterase (NEGATIVE) Urine WBC (Auto) (0-5) /HPF Urine RBC (Auto) (0-2) /HPF U Hyaline Cast (Auto) (0-2) /LPF U Epithel Cells (Auto) (FEW) /HPF Urine Bacteria (Auto) (NEGATIVE) /HPF Urine Mucus (Auto) (NEGATIVE) /HPF Urine Culture Reflexed (NO) Urine Glucose (NEGATIVE) mg/dL Influenza Type A Ag (NEGATIVE) Influenza Type B Ag (NEGATIVE) RSV (PCR) (Negative) SARS-CoV-2 (PCR) (NEGATIVE) Slides for Path Review YES 01/19/21 01/19/21 01/19/21 Range/Units 07:15 07:15 07:34 WBC (4.0-10.5) K/mm3 RBC (4.1-5.6) M/mm3 Hgb (12.5-18.0) gm/dl Hct (42-50) % MCV (78-100) fl MCH (26-32) pg MCHC (32-36) g/dl RDW (11.5-14.0) % Plt Count (150-450) K/mm3 MPV (7.5-11.0) fl Gran % (36.0-66.0) % Eos # (Auto) (0-0.5) Absolute Lymphs (auto) (1.0-4.6) Absolute Monos (auto) (0.0-1.3) Lymphocytes % (24.0-44.0) % Monocytes % (0.0-12.0) % Eosinophils % (0.00-5.0) % Basophils % (0.0-0.4) % Absolute Granulocytes (1.4-6.9) Basophils # (0-0.4) PT 16.6 H (9.4-12.5) SECONDS INR 1.41 (0.8-3.0) D-Dimer 314 (215-500) ng/mL Sodium (137-145) mmol/L Potassium (3.5-5.1) mmol/L Chloride (98-107) mmol/L Carbon Dioxide (22-30) mmol/L Anion Gap (5-15) MEQ/L BUN (9-20) mg/dL Creatinine (0.66-1.25) mg/dL Estimated GFR ML/MIN Glucose (74-106) mg/dL Lactic Acid (0.4-2.0) Calcium (8.4-10.2) mg/dL Magnesium (1.6-2.3) mg/dL Total Bilirubin (0.2-1.3) mg/dL AST (17-59) U/L ALT (0-50) U/L Alkaline Phosphatase (38-126) U/L Troponin I < 0.012 (0.000-0.034) ng/mL NT-Pro-B Natriuret Pep (0-900) pg/mL Serum Total Protein (6.3-8.2) g/dL Albumin (3.5-5.0) g/dL Lipase (23-300) U/L Urine Color (YELLOW) Urine Appearance (CLEAR) Urine pH (5-6) Ur Specific [place] (1.005-1.025) Urine Protein (Negative) Urine Ketones (NEGATIVE) Urine Blood (0-5) Humphrey/ul Urine Nitrite (NEGATIVE) Urine Bilirubin (NEGATIVE) Urine Urobilinogen (0-1) mg/dL Ur Leukocyte Esterase (NEGATIVE) Urine WBC (Auto) (0-5) /HPF Urine RBC (Auto) (0-2) /HPF U Hyaline Cast (Auto) (0-2) /LPF U Epithel Cells (Auto) (FEW) /HPF Urine Bacteria (Auto) (NEGATIVE) /HPF Urine Mucus (Auto) (NEGATIVE) /HPF Urine Culture Reflexed (NO) Urine Glucose (NEGATIVE) mg/dL Influenza Type A Ag NEGATIVE (NEGATIVE) Influenza Type B Ag NEGATIVE (NEGATIVE) RSV (PCR) POSITIVE (Negative) SARS-CoV-2 (PCR) NEGATIVE (NEGATIVE) Slides for Path Review 01/19/21 01/19/21 Range/Units 10:28 19:20 WBC (4.0-10.5) K/mm3 RBC (4.1-5.6) M/mm3 Hgb (12.5-18.0) gm/dl Hct (42-50) % MCV (78-100) fl MCH (26-32) pg MCHC (32-36) g/dl RDW (11.5-14.0) % Plt Count (150-450) K/mm3 MPV (7.5-11.0) fl Gran % (36.0-66.0) % Eos # (Auto) (0-0.5) Absolute Lymphs (auto) (1.0-4.6) Absolute Monos (auto) (0.0-1.3) Lymphocytes % (24.0-44.0) % Monocytes % (0.0-12.0) % Eosinophils % (0.00-5.0) % Basophils % (0.0-0.4) % Absolute Granulocytes (1.4-6.9) Basophils # (0-0.4) PT (9.4-12.5) SECONDS INR (0.8-3.0) D-Dimer (215-500) ng/mL Sodium (137-145) mmol/L Potassium (3.5-5.1) mmol/L Chloride (98-107) mmol/L Carbon Dioxide (22-30) mmol/L Anion Gap (5-15) MEQ/L BUN (9-20) mg/dL Creatinine (0.66-1.25) mg/dL Estimated GFR ML/MIN Glucose (74-106) mg/dL Lactic Acid (0.4-2.0) Calcium (8.4-10.2) mg/dL Magnesium (1.6-2.3) mg/dL Total Bilirubin (0.2-1.3) mg/dL AST (17-59) U/L ALT (0-50) U/L Alkaline Phosphatase (38-126) U/L Troponin I < 0.012 (0.000-0.034) ng/mL NT-Pro-B Natriuret Pep (0-900) pg/mL Serum Total Protein (6.3-8.2) g/dL Albumin (3.5-5.0) g/dL Lipase (23-300) U/L Urine Color SHAYAN (YELLOW) Urine Appearance SLIGHTLY CLOUDY (CLEAR) Urine pH 5.0 (5-6) Ur Specific [place] 1.024 (1.005-1.025) Urine Protein 100 (Negative) Urine Ketones SMALL (NEGATIVE) Urine Blood MODERATE (0-5) Humphrey/ul Urine Nitrite NEGATIVE (NEGATIVE) Urine Bilirubin NEGATIVE (NEGATIVE) Urine Urobilinogen 2 (0-1) mg/dL Ur Leukocyte Esterase NEGATIVE (NEGATIVE) Urine WBC (Auto) 0-2 (0-5) /HPF Urine RBC (Auto) 6-10 (0-2) /HPF U Hyaline Cast (Auto) 3-5 (0-2) /LPF U Epithel Cells (Auto) NONE (FEW) /HPF Urine Bacteria (Auto) NONE SEEN (NEGATIVE) /HPF Urine Mucus (Auto) SLIGHT (NEGATIVE) /HPF Urine Culture Reflexed YES (NO) Urine Glucose >=500 (NEGATIVE) mg/dL Influenza Type A Ag (NEGATIVE) Influenza Type B Ag (NEGATIVE) RSV (PCR) (Negative) SARS-CoV-2 (PCR) (NEGATIVE) Slides for Path Review - Radiology Impressions Radiology Exams & Impressions: Radiology Procedures Category Date Time Status CHEST 1 VIEW (PORTABLE) Stat Exams 01/19/21 07:38 Completed - Other Procedures and Tests Respiratory Therapy 01/19/21 07:43 Respiratory Therapy Assessment ONCE 01/19/21 08:58 Oxygen Nasal Cannula 2 lpm Assessment/Plan (1) COPD exacerbation Current Visit: Yes Status: Acute Assessment & Plan: O2 support , Neb Tx ,Solumedrol,Rocephin Code(s): J44.1 - CHRONIC OBSTRUCTIVE PULMONARY DISEASE W (ACUTE) EXACERBATION (2) RSV (respiratory syncytial virus pneumonia) Current Visit: Yes Status: Acute Assessment & Plan: supportive care Code(s): J12.1 - RESPIRATORY SYNCYTIAL VIRUS PNEUMONIA (3) Heart murmur Current Visit: Yes Status: Chronic Assessment & Plan: valvular heart dz Code(s): R01.1 - CARDIAC MURMUR, UNSPECIFIED (4) long-term current use of antiarrhythmic drug Current Visit: Yes Status: Chronic Code(s): Z79.899 - OTHER CLOTH FRAMER (CURRENT) DRUG THERAPY (5) 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
[2021-01-20] MEDS: PROVENTIL 2.5 MG/3 ML NEB IH SCH ×6 (02:15→23:38)
[2021-01-20] MEDS: solu-MEDROL 60 MG, Sterile H2O 10 ml 2 ML IV SCH ×6 (05:05→17:56)
[2021-01-20 06:07] LABS: Hematocrit 43.3 % (42-50); Hemoglobin 13.8 gm/dl (12.5-18.0); Mean Cell Volume 95.6 fl (78-100); Mean Corpuscular Hemoglobin 30.5 pg (26-32); Mean Corpuscular Hgb Concent. 31.9 g/dl (32-36); Platelet Count 224 K/mm3 (150-450); Red Blood Count 4.53 M/mm3 (4.1-5.6); Red Cell Distribution Width 13.4 % (11.5-14.0); White Blood Count 13.6 K/mm3 (4.0-10.5)
[2021-01-20 06:29] LABS: ALBUMIN 3.6 g/dL (3.5-5.0); ALKALINE PHOSPHATASE 54 U/L (38-126); ANION GAP 12.7 MEQ/L (5-15); BLOOD UREA NITROGEN 20 mg/dL (9-20); CHLORIDE 103 mmol/L (98-107); Calcium 8.8 mg/dL (8.4-10.2); Carbon Dioxide 22 mmol/L (22-30); Creatinine 1 1.09 mg/dL (0.66-1.25); EST GLOMERULAR FILTRATION RATE > 60.0 ML/MIN; Glucose 188 mg/dL (74-106); Potassium 3.9 mmol/L (3.5-5.1); SGOT/AST 20 U/L (17-59); SGPT/ALT 16 U/L (0-50); SODIUM 134 mmol/L (137-145); Total Protein 6.4 g/dL (6.3-8.2)
[2021-01-20] MEDS: Aldactone 25 MG PO SCH (10:05)
[2021-01-20] MEDS: XARELTO 10 MG TABLET PO SCH (10:05)
[2021-01-20] MEDS: Toprol Xl 50 MG PO SCH (10:05)
[2021-01-20] MEDS: ECOTRIN 81 MG PO SCH (10:05)
[2021-01-20] MEDS: Cozaar 50 MG PO SCH (10:06)
[2021-01-20] MEDS: Cordarone 200 MG PO SCH (10:06)
[2021-01-20] MEDS: ROCEPHIN 1 Gm-D5w 50 ml Bag** 1 G/50 ML IVPB IV SCH (10:08)
--- NOTE | 2021-01-20 12:22 | PCM.NOTE ---
Date and Time: 01/20/21 1201 Subjective Assessment: Patient has improved ,not short of breath at rest but still nonproductive cough and wheezing. Appetite is good. Denies chest pain. - Review of Systems Constitutional: No Symptoms Eyes: No Symptoms Ears, Nose, & Throat: No Symptoms Respiratory: Cough, Wheezing Cardiac: No Symptoms Abdominal/Gastrointestinal: No Symptoms Musculoskeletal: No Symptoms Skin: No Symptoms Neurological: No Symptoms Objective Exam General Appearance: no apparent distress Neurologic Exam: alert, oriented x 3, cooperative, normal mood/affect Skin Exam: normal color, warm, dry Eye Exam: eyes nml inspection Ears, Nose, Throat Exam: normal ENT inspection Neck Exam: normal inspection Respiratory Exam: wheezing (fine eew all lung stone,improved aeration compaired to yesterday.) Cardiovascular Exam: regular rate/rhythm, murmur Extremity Exam: normal inspection (no edema) OBJECTIVE DATA Vital Signs: Vital Signs - 24 hr Temp Pulse Resp BP Pulse Ox 01/20/21 11:49 72 18 94 L 01/20/21 07:58 97.7 F 67 18 104/65 94 L 01/20/21 07:30 67 18 94 L 01/20/21 04:00 97.1 F 64 20 100/62 92 L 01/20/21 02:18 61 20 90 L 01/20/21 00:00 97.1 F 66 18 100/57 93 L 01/19/21 22:07 63 18 93 L 01/19/21 20:00 97.5 F 68 18 100/59 92 L 01/19/21 18:54 63 18 92 L 01/19/21 17:36 96 01/19/21 16:00 97.5 F 66 21 98/57 93 L 01/19/21 15:46 72 18 95 01/19/21 12:32 68 21 96 Pain Assessment - Last Documented Pain Intensity 0 Intake and Output: Intake & Output 01/18/21 01/19/21 01/20/21 01/21/21 11:59 11:59 11:59 11:59 Intake Total 2288 Output Total 600 Balance 1688 Weight 82.9 kg Lab Results: Lab Results-Last 24 Hours 01/19/21 01/20/21 01/20/21 Range/Units 19:20 04:30 04:30 WBC 13.6 H (4.0-10.5) K/mm3 RBC 4.53 (4.1-5.6) M/mm3 Hgb 13.8 (12.5-18.0) gm/dl Hct 43.3 (42-50) % MCV 95.6 (78-100) fl MCH 30.5 (26-32) pg MCHC 31.9 L (32-36) g/dl RDW 13.4 (11.5-14.0) % Plt Count 224 (150-450) K/mm3 MPV 10.0 (7.5-11.0) fl Sodium 134 L (137-145) mmol/L Potassium 3.9 D (3.5-5.1) mmol/L Chloride 103 (98-107) mmol/L Carbon Dioxide 22 (22-30) mmol/L Anion Gap 12.7 (5-15) MEQ/L BUN 20 (9-20) mg/dL Creatinine 1.09 (0.66-1.25) mg/dL Estimated GFR > 60.0 ML/MIN Glucose 188 H (74-106) mg/dL Hemoglobin A1c (4.5-6.0) % Calcium 8.8 (8.4-10.2) mg/dL Total Bilirubin 0.50 (0.2-1.3) mg/dL AST 20 (17-59) U/L ALT 16 (0-50) U/L Alkaline Phosphatase 54 (38-126) U/L Serum Total Protein 6.4 (6.3-8.2) g/dL Albumin 3.6 (3.5-5.0) g/dL Urine Color [place] (YELLOW) Urine Appearance SLIGHTLY CLOUDY (CLEAR) Urine pH 5.0 (5-6) Ur Specific [place] 1.024 (1.005-1.025) Urine Protein 100 (Negative) Urine Ketones SMALL (NEGATIVE) Urine Blood MODERATE (0-5) Humphrey/ul Urine Nitrite NEGATIVE (NEGATIVE) Urine Bilirubin NEGATIVE (NEGATIVE) Urine Urobilinogen 2 (0-1) mg/dL Ur Leukocyte Esterase NEGATIVE (NEGATIVE) Urine WBC (Auto) 0-2 (0-5) /HPF Urine RBC (Auto) 6-10 (0-2) /HPF U Hyaline Cast (Auto) 3-5 (0-2) /LPF U Epithel Cells (Auto) NONE (FEW) /HPF Urine Bacteria (Auto) NONE SEEN (NEGATIVE) /HPF Urine Mucus (Auto) SLIGHT (NEGATIVE) /HPF Urine Culture Reflexed YES (NO) Urine Glucose >=500 (NEGATIVE) mg/dL 01/20/21 Range/Units 05:10 WBC (4.0-10.5) K/mm3 RBC (4.1-5.6) M/mm3 Hgb (12.5-18.0) gm/dl Hct (42-50) % MCV (78-100) fl MCH (26-32) pg MCHC (32-36) g/dl RDW (11.5-14.0) % Plt Count (150-450) K/mm3 MPV (7.5-11.0) fl Sodium (137-145) mmol/L Potassium (3.5-5.1) mmol/L Chloride (98-107) mmol/L Carbon Dioxide (22-30) mmol/L Anion Gap (5-15) MEQ/L BUN (9-20) mg/dL Creatinine (0.66-1.25) mg/dL Estimated GFR ML/MIN Glucose (74-106) mg/dL Hemoglobin A1c 5.24 (4.5-6.0) % Calcium (8.4-10.2) mg/dL Total Bilirubin (0.2-1.3) mg/dL AST (17-59) U/L ALT (0-50) U/L Alkaline Phosphatase (38-126) U/L Serum Total Protein (6.3-8.2) g/dL Albumin (3.5-5.0) g/dL Urine Color (YELLOW) Urine Appearance (CLEAR) Urine pH (5-6) Ur Specific [place] (1.005-1.025) Urine Protein (Negative) Urine Ketones (NEGATIVE) Urine Blood (0-5) Humphrey/ul Urine Nitrite (NEGATIVE) Urine Bilirubin (NEGATIVE) Urine Urobilinogen (0-1) mg/dL Ur Leukocyte Esterase (NEGATIVE) Urine WBC (Auto) (0-5) /HPF Urine RBC (Auto) (0-2) /HPF U Hyaline Cast (Auto) (0-2) /LPF U Epithel Cells (Auto) (FEW) /HPF Urine Bacteria (Auto) (NEGATIVE) /HPF Urine Mucus (Auto) (NEGATIVE) /HPF Urine Culture Reflexed (NO) Urine Glucose (NEGATIVE) mg/dL Radiology Exams: Radiology Procedures Category Date Time Status CHEST 1 VIEW (PORTABLE) Stat Exams 01/19/21 07:38 Completed Assessment/Plan (1) COPD exacerbation Current Visit: Yes Status: Acute Assessment & Plan: improving on solumedrol and Rocephin Code(s): J44.1 - CHRONIC OBSTRUCTIVE PULMONARY DISEASE W (ACUTE) EXACERBATION (2) RSV (respiratory syncytial virus infection) Current Visit: Yes Status: Acute Code(s): B97.4 - RESPIRATORY SYNCYTIAL VIRUS CAUSING DISEASES CLASSD [id number]
[2021-01-20] MEDS ORDERED: solu-MEDROL ONE (13:32)
[2021-01-20] MEDS: Robitussin-Dm Syrup PO PRN (13:42)
[2021-01-21] MEDS ORDERED: solu-MEDROL ONE ×2 (00:26→06:14)
[2021-01-21] MEDS: solu-MEDROL 60 MG, Sterile H2O 10 ml 2 ML IV SCH ×4 (00:37→06:17)
[2021-01-21] MEDS: PROVENTIL 2.5 MG/3 ML NEB IH SCH ×3 (03:38→10:32)
[2021-01-21] MEDS: Aldactone 25 MG PO SCH (09:42)
[2021-01-21] MEDS: XARELTO 10 MG TABLET PO SCH (09:42)
[2021-01-21] MEDS: Cozaar 50 MG PO SCH (09:42)
[2021-01-21] MEDS: ECOTRIN 81 MG PO SCH (09:42)
[2021-01-21] MEDS: Toprol Xl 50 MG PO SCH (09:42)
[2021-01-21] MEDS: Cordarone 200 MG PO SCH (09:42)
[2021-01-21] MEDS: ROCEPHIN 1 Gm-D5w 50 ml Bag** 1 G/50 ML IVPB IV SCH (09:43)
[2021-01-21] MEDS: Robitussin-Dm Syrup PO PRN (09:44)
[2021-01-21 11:46] VITALS: BP 100/63; PULSE 66; O2SAT 94
[2021-01-21] MEDS ORDERED: solu-MEDROL IV SCH (12:00)
--- NOTE | 2021-01-21 13:32 | PCM.DCORD ---
- Discharge Disposition: Home, Self-Care Condition: Stable Prescriptions: New Prednisone 10 mg [Deltasone 10 mg] 0 mg PO DAILY #30 tablet Cephalexin Mh 500 mg [Keflex 500 mg] 500 mg PO TID #15 Continue Aspirin 81 mg PO DAILY Spironolactone 25 mg [Aldactone 25 MG] 25 mg PO DAILY Rivaroxaban [Xarelto] 20 mg PO DAILY Amiodarone HCl 200 mg PO DAILY Losartan Potassium 25 mg PO DAILY Metoprolol Succinate 50 mg [Toprol Xl 50 MG] 50 mg PO DAILY Instructions: Chronic Obstructive Pulmonary Disease (COPD) (DC), Respiratory Syncytial Virus, Adult (DC) Follow up with: TANIA BATISTA DO [ACTIVE STAFF] - Forms: Discharge Instructions
== END 2021-01-21 14:29 | disposition home or self-care (01) ==
LOC: ED 07:07 → MED SURG 10:44
PROVIDERS: ADMIT Family Medicine; ATTEND Family Medicine
DX: J44.1 Chronic obstructive pulmonary disease with (acute) exacerbation (principal); J12.1 Respiratory syncytial virus pneumonia; R01.1 Cardiac murmur, unspecified; R07.9 Chest pain, unspecified; I10 Essential (primary) hypertension; F17.200 Nicotine dependence, unspecified, uncomplicated; Z79.899 Other long term (current) drug therapy; Z79.01 Long term (current) use of anticoagulants; Z20.828 Contact with and (suspected) exposure to other viral communicable diseases
CPT/HCPCS: 0241U; 36000; 36415; 71045; 80053; 81001; 83036; 83605; 83690; 83735; 83880; 84484; 85025; 85027; 85379; 85610; 87040; 87086; 93005; 94640; 94760; 96365; 96374; 99285; G0378; J0696; J2930; J7609; A9270-GY

== ENCOUNTER 2022-09-06 21:10 | Emergency (ER) | payer SELFPAY ==
--- NOTE | 2022-09-06 21:59 | ERPHSYRPT ---
- History of Present Illness Time Seen by Provider: 09/06/22 21:12 Source: patient, family Patient Subjective Stated Complaint: peeing blood x4 days Triage Nursing Assessment: pt ambulated into ER without diff, daughter at bedside. Pt speaks very little Swedish, but pt is at bedside translating. Pt c/o urinating blood x4 days, but has gotten worse today. The last few days it mostly had tiny blood clots in it but today was more pink in color. Urine collected here and is pink throughout. Pt denies any abd or back pain. Physician History: 62-year-old male with history of atrial fibrillation, mechanical heart valves on Xarelto, hypertension, hyperlipidemia presented in the ER with chief complaint of blood in urine. Patient reports having discoloration of urine for the last 4 days where he noticed small clots and today urine color was pink. No fresh blood in the urine. Denies any abdominal pain nausea vomiting. Does report having subjective feeling of fever and chills 2 days ago which improved. No cough or difficulty breathing/palpitations reported. Denies any hematemesis/hematochezia/melena. History is obtained from daughter as patient speaks Pashto and some Swedish. Timing/Duration: day(s) (4), intermittent, worse Activites at Onset: none Severity of Pain-Max: none Severity of Pain-Current: none Modifying Factors: Improves With: nothing Associated Symptoms: No abdominal pain, No urinary frequency Sexual intercourse history: non-contributory Allergies/Adverse Reactions: No Known Drug Allergies Allergy (Verified 09/06/22 21:47) Home Medications: Aspirin 81 mg PO DAILY 12/14/14 [History] Amiodarone HCl 200 mg PO DAILY 06/17/16 [History] Losartan Potassium 25 mg PO DAILY 06/17/16 [History] Rivaroxaban [Xarelto] 20 mg PO DAILY 06/17/16 [History] Spironolactone 25 mg [Aldactone 25 MG] 25 mg PO DAILY 06/17/16 [History] Metoprolol Succinate 50 mg [Toprol Xl 50 MG] 50 mg PO DAILY 01/19/21 [History] Hx Tetanus, Diphtheria Vaccination/Date Given: Yes Hx Influenza Vaccination/Date Given: No Hx Pneumococcal Vaccination/Date Given: No Immunizations Up to Date: Yes Travel Risk - International Travel Have you traveled outside of the country in past 3 weeks: No - Coronavirus Screening Are you exhibiting any of the following symptoms?: No Close contact with a COVID-19 positive Pt in past 14-21 Days: No - Vaccine Status Have you recieved a Covid-19 vaccination: Yes Slp: Moderna - Vaccination Dates Date of 2cond Vaccination (if applicable): . - Past Medical History Pertinent Past Medical History: Yes Neurological History: No Pertinent History ENT History: No Pertinent History Cardiac History: Arrhythmia, Coronary Artery Disease, Hypertension, Other Respiratory History: COPD Endocrine Medical History: No Pertinent History Musculoskeletal History: No Pertinent History GI Medical History: No Pertinent History History: No Pertinent History Psycho-Social History: No Pertinent History Male Reproductive Disorders: No Pertinent History 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 - Past Surgical History Past Surgical History: Yes Neuro Surgical History: No Pertinent History Cardiac: CABG Respiratory: No Pertinent History Gastrointestinal: No Pertinent History Genitourinary: No Pertinent History Musculoskeletal: No Pertinent History Male Surgical History: No Pertinent History - Social History Smoking Status: Current every day smoker How long have you smoked: 40 yrs Exposure to second hand smoke: Yes Drug Use: none Patient Lives Alone: No - Review of Systems Constitutional: Fatigue Eyes: No Symptoms Ears, Nose, & Throat: No Symptoms Respiratory: No Symptoms Cardiac: No Symptoms Abdominal/Gastrointestinal: No Symptoms Genitourinary Symptoms: Hematuria Musculoskeletal: No Symptoms Neurological: No Symptoms Psychological: No Symptoms Endocrine: No Symptoms - Nursing Vital Signs Nursing Vital Signs: Initial Vital Signs Temperature 97.7 F 09/06/22 21:28 Pulse Rate 54 L 09/06/22 21:28 Respiratory Rate 18 09/06/22 21:28 Blood Pressure 130/73 09/06/22 21:28 O2 Sat by Pulse Oximetry 98 09/06/22 21:28 Pain Scale Pain Intensity 0 - Physical Exam General Appearance: no apparent distress, alert Eye Exam: PERRL/EOMI Ears, Nose, Throat Exam: normal ENT inspection, TMs normal, pharynx normal, moist mucous membranes Neck Exam: normal inspection, non-tender, supple, full range of motion Respiratory Exam: normal breath sounds, lungs clear Cardiovascular Exam: normal heart sounds, bradycardia Gastrointestinal/Abdomen Exam: soft, normal bowel sounds, No tenderness Back Exam: normal inspection, normal range of motion Extremity Exam: normal inspection, normal range of motion Neurologic Exam: alert, oriented x 3, cooperative Skin Exam: normal color SpO2 Interpretation: normal SpO2: 98 O2 Delivery: Room Air Ordered Tests: Active Orders 24 hr Category Date Time Status IV Insertion STAT Care 09/06/22 21:34 Active NPO (ED) STAT Care 09/06/22 21:34 Active CBC W DIFF Stat Lab 09/06/22 22:22 Completed CMP Stat Lab 09/06/22 22:22 Completed CULTURE,URINE Stat Lab 09/06/22 22:06 Received UA W/RFX UR CULTURE Stat Lab 09/06/22 22:06 Completed Medication Summary Discontinued Medications Generic Name Dose Route Start Last Admin Trade Name Freq PRN Reason Stop Dose Admin Ceftriaxone Sodium/Dextrose 2 g in 50 mls @ 100 mls/hr 09/06/22 22:32 09/06/22 22:49 Rocephin 2 Gm-D5w 50ml Bag IV 09/06/22 23:01 100 mls/hr STAT STA 100 mls/hr Administration Ceftriaxone Sodium/Dextrose Confirm 09/06/22 22:47 Rocephin 2 Gm-D5w 50ml Bag Administered 09/06/22 22:48 Dose 2 g in 50 mls @ ud IV .p[facility]-MED ONE Lab/Rad Data: Laboratory Result Diagrams 09/06/22 22:22 09/06/22 22:22 Laboratory Results 09/06/22 09/06/22 09/06/22 Range/Units 22:22 22:22 22:06 WBC 10.7 H (4.0-10.5) x10^3/uL RBC 4.30 (4.1-5.6) x10^6/uL Hgb 11.5 L (12.5-18.0) g/dL Hct 36.4 L (42-50) % MCV 84.7 (78-100) fL MCH 26.7 (26-32) pg MCHC 31.6 L (32-36) g/dL RDW 15.6 H (11.5-14.0) % Plt Count 287 (150-450) x10^3/uL MPV 9.3 (7.5-11.0) fL Gran % 76.8 H (36.0-66.0) % Immature Gran % (Auto) 0.7 H (0.00-0.4) % Nucleat RBC Rel Count 0.0 (0.00-0.1) % Eos # (Auto) 0.07 (0-0.5) x10^3/uL Immature Gran # (Auto) 0.07 H (0.00-0.03) x10^3u/L Absolute Lymphs (auto) 1.13 (1.0-4.6) x10^3/uL Absolute Monos (auto) 1.13 (0.0-1.3) x10^3/uL Absolute Nucleated RBC 0.00 (0.00-0.01) x10^3u/L Lymphocytes % 10.6 L (24.0-44.0) % Monocytes % 10.6 (0.0-12.0) % Eosinophils % 0.7 (0.00-5.0) % Basophils % 0.6 (0.0-0.4) % Absolute Granulocytes 8.25 H (1.4-6.9) x10^3/uL Basophils # 0.06 (0-0.4) x10^3/uL Sodium 131 L (137-145) mmol/L Potassium 3.9 (3.5-5.1) mmol/L Chloride 98 (98-107) mmol/L Carbon Dioxide 24 (22-30) mmol/L Anion Gap 12.1 (5-15) MEQ/L BUN 11 (9-20) mg/dL Creatinine 1.11 (0.66-1.25) mg/dL Estimated GFR > 60.0 ML/MIN Glucose 80 (74-106) mg/dL Calcium 8.3 L (8.4-10.2) mg/dL Total Bilirubin 0.50 (0.2-1.3) mg/dL AST 32 (17-59) U/L ALT 22 (0-50) U/L Alkaline Phosphatase 58 (38-126) U/L Serum Total Protein 7.2 (6.3-8.2) g/dL Albumin 3.7 (3.5-5.0) g/dL Urine Color [place] A (Yellow) Urine Appearance Turbid A (Clear) Urine pH 5.5 (4.6-8.0) Ur Specific [place] <=1.005 (1.005-1.030) Urine Protein 100 A (Negative) Urine Glucose (UA) Negative (Negative) mg/dL Urine Ketones Negative (Negative) Urine Blood Large A (Negative) Urine Nitrite Negative (Negative) Urine Bilirubin Negative (Negative) Urine Urobilinogen 0.2 (0.2) mg/dL Ur Leukocyte Esterase Large A (Negative) U Hyaline Cast (Auto) 3-5 A (0-2) /LPF Urine Microscopic RBC 21-50 A (0-5) /HPF Urine Microscopic WBC >100 A (0-5) /HPF Ur Epithelial Cells None Seen (None Seen) /HPF Urine Bacteria Moderate A (None Seen) /HPF Urine Culture Reflexed YES (NO) - Progress Progress: improved Progress Note: 09/06/22 23:35 62-year-old male with history of atrial fibrillation, mechanical heart valves on Xarelto, hypertension, hyperlipidemia presented in the ER with chief complaint of blood in urine. Patient reports having discoloration of urine for the last 4 days where he noticed small clots and today urine color was pink. No fresh blood in the urine. Denies any abdominal pain nausea vomiting. Does report having subjective feeling of fever and chills 2 days ago which improved. No cough or difficulty breathing/palpitations reported. Denies any hematemesis/hematochezia/melena. History is obtained from daughter as patient speaks Pashto and some Swedish. Patient blood has a pinkish tinge but no fresh blood and is gradually clearing while he is in the ER. Has a white count of 10, hemoglobin of 11.5. Fairly unremarkable chemistries. Does have UTI and given dose of Rocephin in here. He is offered observation admission for hemorrhagic cystitis but patient does not want to stay as he does not have insurance and has financial concerns. He rather wants to go home. I will would put him on cefpodoxime to go home and outpatient primary care and urology follow-up recommended. Discussed signs symptoms of worsening and also if having hemoptysis/hematemesis/epigastric pain/dark stool/hematochezia needing return to ER which patient and family seem understanding. Patient//daughter were involved in decision making and translating to patient which she seems understanding. Counseled pt/family regarding: lab results, diagnosis, need for follow-up Medical Desision Making - Independent Historian Additional History obtained from: Spouse, Child - Diagnostic Testing Diagnostic test were ordered, analyzed, and reviewed by me: Yes - Departure Departure Disposition: Home Clinical Impression: Hemorrhagic cystitis Condition: Stable Critical Care Time: No Referrals: DOCTOR,NO FAMILY [Primary Care Provider] - Follow up/PCP as directed FLOYD SALINAS MD [ACTIVE STAFF] - Follow up/PCP as directed (Call tomorrow for appointment for reevaluation) SHEYLA DEGROOT [COURTESY STAFF] - Follow up/PCP as directed (Call tomorrow for appointment for reevaluation) Instructions: Blood in the urine (hematuria) in adults Additional Instructions: Drink plenty of fluids to keep yourself well-hydrated. Follow-up with primary care and urology for reevaluation. Do not take ibuprofen but Tylenol as needed for pain. Return to ER if having pain/fever chills/increased blood in the urine or if having epigastric pain/dark stool/vomiting or coughing up blood. Prescriptions: Cefpodoxime Proxetil 200 mg [Vantin 200 mg] 200 mg PO BID 7 Days #14 tablet
[2022-09-06 22:14] LABS: Appearance Turbid (Clear); Bacteria Moderate /HPF (None Seen); Bilirubin Negative (Negative); Blood Large (Negative); Epithelial Cells None Seen /HPF (None Seen); Glucose, Urine Negative (Negative); Ketones Negative (Negative); Leukocyte Esterase Large (Negative); Nitrite Negative (Negative); Ph 5.5 (4.6-8.0); Protein,Urine Dip 100 (Negative); RBC 21-50 /HPF (0-5); Specific Gravity <=1.005 (1.005-1.030); Urobilinogen 0.2 mg/dL (0.2); WBC >100 /HPF (0-5)
[2022-09-06 22:15] LABS: ADD URINE CULTURE? YES (NO)
[2022-09-06 22:25] LABS: Absolute Neutrophil Ct (ANC) 8.25 x10^3/uL (1.4-6.9); BASOPHIL % 0.6 % (0.0-0.4); Basophil (Absolute #) 0.06 x10^3/uL (0-0.4); Eosinophil % 0.7 % (0.00-5.0); Eosinophil (Absolute #) 0.07 x10^3/uL (0-0.5); Hematocrit 36.4 % (42-50); Hemoglobin 11.5 g/dL (12.5-18.0); IMMATURE GRAN # 0.07 x10^3u/L (0.00-0.03); IMMATURE GRAN % 0.7 % (0.00-0.4); Lymphocyte (Absolute #) 1.13 x10^3/uL (1.0-4.6); Lymphocytes % 10.6 % (24.0-44.0); Mean Cell Volume 84.7 fL (78-100); Mean Corpuscular Hemoglobin 26.7 pg (26-32); Mean Corpuscular Hgb Concent. 31.6 g/dL (32-36); Mean Platelet Volume 9.3 fL (7.5-11.0); Monocyte (Absolute #) 1.13 x10^3/uL (0.0-1.3); Monocytes % 10.6 % (0.0-12.0); Neutrophil % 76.8 % (36.0-66.0); Platelet Count 287 x10^3/uL (150-450); Red Cell Distribution Width 15.6 % (11.5-14.0); White Blood Count 10.7 x10^3/uL (4.0-10.5)
[2022-09-06] MEDS ORDERED: ROCEPHIN 2 Gm-D5w 50ML BAG** 2 G/50 ML IVPB IV STA (22:32)
[2022-09-06 22:40] LABS: ALBUMIN 3.7 g/dL (3.5-5.0); ALKALINE PHOSPHATASE 58 U/L (38-126); ANION GAP 12.1 MEQ/L (5-15); BLOOD UREA NITROGEN 11 mg/dL (9-20); CHLORIDE 98 mmol/L (98-107); Calcium 8.3 mg/dL (8.4-10.2); Carbon Dioxide 24 mmol/L (22-30); Creatinine 1 1.11 mg/dL (0.66-1.25); EST GLOMERULAR FILTRATION RATE > 60.0 ML/MIN; Glucose 80 mg/dL (74-106); Potassium 3.9 mmol/L (3.5-5.1); SGOT/AST 32 U/L (17-59); SGPT/ALT 22 U/L (0-50); SODIUM 131 mmol/L (137-145); Total Protein 7.2 g/dL (6.3-8.2)
[2022-09-06] MEDS ORDERED: ROCEPHIN 2 Gm-D5w 50ML BAG** 2 G/50 ML IVPB IV ONE (22:47)
[2022-09-06 23:03] VITALS: BP 111/73; PULSE 62
[2022-09-06 23:39] VITALS: O2SAT 98
== END 2022-09-06 23:58 | disposition home or self-care (01) ==
LOC: ED 21:10
DX: N30.91 Cystitis, unspecified with hematuria (principal); I10 Essential (primary) hypertension; E78.5 Hyperlipidemia, unspecified; Z79.01 Long term (current) use of anticoagulants; Z79.899 Other long term (current) drug therapy; Z72.0 Tobacco use
CPT/HCPCS: 36000; 36415; 80053; 81001; 85025; 87086; 96365; 99283; J0696

== ENCOUNTER 2024-02-24 14:10 | Emergency (ER) | payer SELFPAY ==
[2024-02-24] MEDS ORDERED: NITRO-BID 2% UD PACKETS ONE (14:17)
[2024-02-24] MEDS ORDERED: Lasix 40 MG/4 ML ONE (14:18)
[2024-02-24 14:23] VITALS: TEMP 95.9
[2024-02-24] MEDS ORDERED: MAGNESIUM SULF 2 G/50 ML BAG 2 GM/50 ML PIGGYBACK IV ONE (14:23)
[2024-02-24] MEDS ORDERED: Sodium Chloride 0.9% 1000 ML 1,000 ML ONE (14:23)
[2024-02-24 14:24] LABS: A-aADO2 117; ABG HEMOGLOBIN 15.4; ABG POTASSIUM 4.5 (3.5-5.1); ARTERIAL BLD GAS O2 SATURATION 79.3 % (95-100); ARTERIAL BLOOD GAS FIO2 32 %; ARTERIAL BLOOD GAS PCO2 46 mmHg (35-45); ARTERIAL BLOOD GAS PO2 54 mmHg (75-100); CARBOXYHEMOGLOBIN 1.3 % THgb (0.0-6.9); HGB O2 SAT 78.3 g/dF (94-100); paO2 pAO1 0.32
[2024-02-24] MEDS ORDERED: SODIUM BICARBONATE 50 MEQ/50 ML ABBOJECT IV ONE (14:24)
[2024-02-24] MEDS: Sodium Chloride 0.9% 1000 ML 1,000 ML IV SCH (14:24)
[2024-02-24] MEDS: MAGNESIUM SULF 2 G/50 ML BAG 2 GM/50 ML PIGGYBACK IV ONE (14:24)
[2024-02-24 14:25] LABS: ABG SITE RIGHT BRACHIAL
[2024-02-24] MEDS: Lasix 40 MG/4 ML IV ONE (14:26)
[2024-02-24] MEDS: NITRO-BID 2% UD PACKETS TOP ONE (14:26)
[2024-02-24] MEDS ORDERED: DUONEB 0.5-3 MG/3 ml Neb IH ONE ×3 (14:27→22:32)
[2024-02-24] MEDS: SODIUM BICARBONATE 50 MEQ/50 ML ABBOJECT IV ONE (14:29)
[2024-02-24] MEDS ORDERED: solu-MEDROL ONE (14:30)
[2024-02-24] MEDS ORDERED: Sodium Bicarbonate 50 MEQ/50 ML VIAL*** 150 MEQ in Dextrose 5%/Water IV Soln. 1000 ML 1... IV SCH (14:30)
[2024-02-24] MEDS ORDERED: Sterile H2O 10 ml IJ ONE (14:30)
[2024-02-24] MEDS: solu-MEDROL 125 MG, Sterile H2O 10 ml 2 ML IV ONE (14:31)
[2024-02-24] MEDS: DUONEB 0.5-3 MG/3 ml Neb IH ONE (14:33)
[2024-02-24] MEDS: PIPERACILLIN/TAZOBACTAM 3.375 GM in Sodium Chloride 100ML MINI-BAG PLUS 100 ML IV ONE (14:47)
[2024-02-24] MEDS ORDERED: PIPERACILLIN/TAZOBACTAM IV ONE (14:47)
[2024-02-24] MEDS ORDERED: Sodium Chloride 100ML MINI-BAG PLUS 100 ML IV ONE (14:47)
[2024-02-24 14:57] LABS: Absolute Neutrophil Ct (ANC) 10.68 x10^3/uL (1.78-5.38); BASOPHIL % 0.6 % (0.2-1.2); Basophil (Absolute #) 0.08 x10^3/uL (0.01-0.08); Eosinophil % 2.1 % (0.8-7.0); Eosinophil (Absolute #) 0.28 x10^3/uL (0.04-0.54); Hematocrit 47.8 % (40.1-51.0); IMMATURE GRAN # 0.08 x10^3u/L (0.001-0.031); IMMATURE GRAN % 0.6 % (0.001-0.429); Lymphocyte (Absolute #) 1.22 x10^3/uL (1.32-3.57); Lymphocytes % 9.3 % (21.8-53.1); Mean Cell Volume 83.9 fL (79.0-92.2); Mean Corpuscular Hemoglobin 26.3 pg (25.7-32.2); Mean Corpuscular Hgb Concent. 31.4 g/dL (32.3-36.5); Mean Platelet Volume 9.7 fL (9.4-12.4); Monocyte (Absolute #) 0.72 x10^3/uL (0.30-0.82); Monocytes % 5.5 % (5.3-12.2); Neutrophil % 81.9 % (34.0-67.9); Platelet Count 232 x10^3/uL (163-337); Red Cell Distribution Width 19.5 % (11.6-14.4); White Blood Count 13.1 x10^3/uL (4.23-9.07)
[2024-02-24 15:10] LABS: ALBUMIN 4.6 g/dL (3.5-5.0); ANION GAP 16.9 MEQ/L (5-15); BILIRUBIN,TOTAL 2.1 mg/dL (0.2-1.3); Calcium 9.3 mg/dL (8.4-10.2); Creatinine 1 1.43 mg/dL (0.66-1.25); EST GLOMERULAR FILTRATION RATE 55.4 ML/MIN; MAGNESIUM 2.3 mg/dL (1.6-2.3); Potassium 4.3 mmol/L (3.5-5.1); Total Protein 7.8 g/dL (6.3-8.2)
[2024-02-24 15:31] LABS: INFLUENZA A NEGATIVE (NEGATIVE); INFLUENZA B NEGATIVE (NEGATIVE); RESPIRATORY SYNCTIAL VIRUS NEGATIVE (NEGATIVE); SARS-CoV-2 Xpert Express NEGATIVE (NEGATIVE)
[2024-02-24] MEDS ORDERED: Zithromax 500 MG/ 250 ML NaCl Premix 500 MG/250 ML IVPB IV ONE (15:35)
[2024-02-24] MEDS: Zithromax 500 MG/ 250 ML NaCl Premix 500 MG/250 ML IVPB IV STA (15:36)
--- NOTE | 2024-02-24 16:26 | XRAY ---
Indication: Dyspnea. Comparison: January 19, 2021 Portable chest remains hyperinflated. No focal infiltrate, consolidation, or large effusion. Heart not enlarged again with cardiac valve replacement surgery. Bony thorax intact again with osteopenia. Impression: Nonacute hyperinflated chest with chronic features.
[2024-02-24] MEDS ORDERED: TYLENOL 325 MG PO PRN (18:39)
--- NOTE | 2024-02-24 18:46 | ERPHSYRPT ---
- History of Present Illness Time Seen by Provider: 02/24/24 14:12 Source: EMS Exam Limitations: clinical condition Patient Subjective Stated Complaint: PT states "I cannot breath." Triage Nursing Assessment: Pt presented alert and oriented X 3, skin pale cool and clammy. Pt tachypneic. anxious in tripod position. Timing/Duration: today Severity: severe Associated Symptoms: shortness of breath Allergies/Adverse Reactions: No Known Drug Allergies Allergy (Verified 09/06/22 21:47) Home Medications: Aspirin 81 mg PO DAILY 12/14/14 [History] Losartan Potassium 25 mg PO DAILY 06/17/16 [History] Spironolactone 25 mg [Aldactone 25 MG] 12.5 mg PO DAILY 06/17/16 [History] Metoprolol Succinate 50 mg [Toprol Xl 50 MG] 100 mg PO DAILY 01/19/21 [History] Furosemide [Lasix] 20 mg PO DAILY 02/24/24 [History] Hx Tetanus, Diphtheria Vaccination/Date Given: Yes Hx Influenza Vaccination/Date Given: No Hx Pneumococcal Vaccination/Date Given: No Immunizations Up to Date: No Travel Risk - International Travel Have you traveled outside of the country in past 3 weeks: No - Emerging Infectious Disease Are you exhibiting symptoms associated with any current EIDs: No - Past Medical History Pertinent Past Medical History: Yes Neurological History: No Pertinent History ENT History: No Pertinent History Cardiac History: Arrhythmia, Congestive Heart Failure, Coronary Artery Disease, Hypertension, Other Respiratory History: COPD Endocrine Medical History: No Pertinent History Musculoskeletal History: No Pertinent History GI Medical History: No Pertinent History History: No Pertinent History Psycho-Social History: No Pertinent History Male Reproductive Disorders: No Pertinent History 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 - Past Surgical History Past Surgical History: Yes Neuro Surgical History: No Pertinent History Cardiac: CABG Respiratory: No Pertinent History Gastrointestinal: No Pertinent History Genitourinary: No Pertinent History Musculoskeletal: No Pertinent History Male Surgical History: No Pertinent History - Social History Smoking Status: Current every day smoker How long have you smoked: 40 yrs Exposure to second hand smoke: Yes Drug Use: none Patient Lives Alone: No - Social Determinants of Health Will the patient participate in the screening: Declined to provide - Nursing Vital Signs Nursing Vital Signs: Initial Vital Signs Temperature 95.9 F 02/24/24 14:10 Pulse Rate 140 H 02/24/24 14:10 Respiratory Rate 34 H 02/24/24 14:10 Blood Pressure 142/95 02/24/24 14:10 O2 Sat by Pulse Oximetry 90 L 02/24/24 14:10 Pain Scale Pain Intensity 0 - Physical Exam General Appearance: moderate distress, alert Eye Exam: PERRL/EOMI Ears, Nose, Throat Exam: normal ENT inspection Neck Exam: JVD Respiratory Exam: crackles/rales, wheezing Cardiovascular Exam: tachycardia Gastrointestinal/Abdomen Exam: soft, normal bowel sounds Neurologic Exam: alert, oriented x 3 Skin Exam: normal color, warm, dry SpO2: 89 Ordered Tests: Active Orders 24 hr Category Date Time Status Bedrest TOLERATED Activity 02/24/24 18:39 Active Code Status Order ROUTINE Care 02/24/24 18:37 Active Elevate HOB TOLERATED Care 02/24/24 18:[address] in Observation ROUTINE Care 02/24/24 18:37 Active CHEST 1 VIEW (PORTABLE) Stat Exams 02/24/24 14:12 Completed CHEST WITH CONTRAST [CT] Stat Exams 02/24/24 15:54 Taken ECHO W/2D AND DOPPLER [US] Routine Exams 02/25/24 08:00 Ordered ARTERIAL BLOOD GASES Stat Lab 02/24/24 14:12 Completed BLOOD CULTURE Stat Lab 02/24/24 14:40 Received CBC AM.LAB Lab 02/25/24 04:00 Ordered CBC W DIFF Stat Lab 02/24/24 14:31 Completed CMP AM.LAB Lab 02/25/24 04:00 Ordered CMP Stat Lab 02/24/24 14:31 Completed D-DIMER QUANTITATIVE Stat Lab 02/24/24 14:31 Completed Lactic Acid Routine Lab 02/24/24 18:30 Completed Lactic Acid Urgent Lab 02/24/24 14:27 Completed MAGNESIUM Stat Lab 02/24/24 14:31 Completed NT PRO BNPII AM.LAB Lab 02/25/24 04:00 Ordered NT PRO BNPII Stat Lab 02/24/24 14:31 Completed TROPONIN Q4H Lab 02/24/24 14:12 Completed TROPONIN Q4H Lab 02/24/24 18:15 Completed TROPONIN Q4H Lab 02/24/24 23:00 Ordered BiPap/CPAP STAT RT 02/24/24 14:12 Active Respiratory Therapy Assessment DAILY RT 02/24/24 14:34 Active Medication Summary Generic Name Dose Route Start Last Admin Trade Name Freq PRN Reason Stop Dose Admin Acetaminophen 325 mg 02/24/24 18:39 Acetaminophen 325 Mg Tablet PO 03/25/24 18:38 Q4H PRN PRN PAIN, FEVER, HEADACHE Albuterol/Ipratropium 3 ml 02/24/24 19:00 02/24/24 19:16 Ipratropium/Albuterol Sulfate 3 Ml Ampul.Neb IH 03/25/24 18:59 3 ml Q6HRT ANJUM Administration Sodium Chloride 1,000 mls @ 100 mls/hr 02/24/24 14:15 02/24/24 14:24 Sodium Chloride 0.9% 1000 Ml IV 03/25/24 14:14 100 mls/hr .Q10H ANJUM Administration Ceftriaxone Sodium 1 gm in 100 mls @ 200 mls/hr 02/25/24 10:00 Rocephin 1 Gm / 100 Ml Nacl IV 03/26/24 09:59 Q24H10 ANJUM Azithromycin 500 mg in 250 mls @ 250 mls/hr 02/25/24 10:00 Zithromax 500 Mg/ 250 Ml Nacl Premix IV 03/26/24 09:59 Q24H10 ANJUM Sodium Chloride 10 ml 02/24/24 22:00 Normal Saline 10 Ml Flush IV 03/25/24 21:59 Q8HT ANJUM Discontinued Medications Generic Name Dose Route Start Last Admin Trade Name Melinda PRN Reason Stop Dose Admin Albuterol/Ipratropium 3 ml 02/24/24 14:13 02/24/24 14:33 Ipratropium/Albuterol Sulfate 3 Ml Ampul.Neb 02/24/24 14:14 3 ml STAT ONE Administration Albuterol/Ipratropium Confirm 02/24/24 14:27 Ipratropium/Albuterol Sulfate 3 Ml Ampul.Neb Administered 02/24/24 14:28 Dose 3 ml IH .STK-MED ONE Methylprednisolone Sodium 0 mg 02/24/24 14:13 02/24/24 14:31 Succinate 125 mg/ Sterile IV 02/24/24 14:14 125 mg Water 2 ml STAT ONE Administration Furosemide 40 mg 02/24/24 14:18 02/24/24 14:26 Furosemide 40 Mg/4 Ml Vial IV 02/24/24 14:19 40 mg STAT ONE Administration Furosemide Confirm 02/24/24 14:18 Furosemide 40 Mg/4 Ml Vial Administered 02/24/24 14:19 Dose 40 mg .ROUTE .STK-MED ONE Magnesium Sulfate/Water 2 gm in 50 mls @ 100 mls/hr 02/24/24 14:19 02/24/24 14:57 Magnesium Sulf 2 G/50 Ml Bag IV 02/24/24 14:48 Infused ONCE ONE Infusion Sodium Bicarbonate 150 meq/ 1,150 mls @ 100 mls/hr 02/24/24 14:30 Dextrose IV 03/25/24 14:29 .[id number] ANJUM Piperacillin Sod/Tazobactam 100 mls @ 200 mls/hr 02/24/24 14:23 02/24/24 14:47 Sod 3.375 gm/ Sodium Chloride IV 02/24/24 14:52 200 mls/hr STAT ONE Administration Azithromycin 500 mg in 250 mls @ 250 mls/hr 02/24/24 14:23 02/24/24 16:42 Zithromax 500 Mg/ 250 Ml Nacl Premix IV 02/24/24 15:22 Infused STAT STA Infusion Magnesium Sulfate/Water Confirm 02/24/24 14:23 Magnesium Sulf 2 G/50 Ml Bag Administered 02/24/24 14:24 Dose 2 gm in 50 mls @ ud IV .STK-MED ONE Sodium Chloride Confirm 02/24/24 14:47 Sodium Chloride 100ml Mini-Bag Plus Administered 02/24/24 14:48 Dose 100 mls @ ud IV .STK-MED ONE Azithromycin Confirm 02/24/24 15:35 Zithromax 500 Mg/ 250 Ml Nacl Premix Administered 02/24/24 15:36 Dose 500 mg in 250 mls @ ud IV .STK-MED ONE Methylprednisolone Sodium Succinate Confirm 02/24/24 14:30 Methylprednis Sod Succ 125 Mg/2 Ml Vial Administered 02/24/24 14:31 Dose 125 mg .ROUTE .STK-MED ONE Nitroglycerin 1 gm 02/24/24 14:18 02/24/24 14:26 Nitroglycerin 1 Gm Packet TOP 02/24/24 14:19 1 gm STAT ONE Administration Nitroglycerin Confirm 02/24/24 14:17 Nitroglycerin 1 Gm Packet Administered 02/24/24 14:18 Dose 1 gm .ROUTE .STK-MED ONE Piperacillin Sod/Tazobactam Sod Confirm 02/24/24 14:47 Piperacillin/Tazobactam Sodium 3.375 Gm Vial Administered 02/24/24 14:48 Dose 3.375 gm IV .STK-MED ONE Sodium Bicarbonate Confirm 02/24/24 14:24 Sodium Bicarbonate 1 Meq/Ml 50ml Syringe Administered 02/24/24 14:25 Dose 50 meq IV .STK-MED ONE Sodium Bicarbonate 50 meq 02/24/24 14:27 02/24/24 14:29 Sodium Bicarbonate 1 Meq/Ml 50ml Syringe IV 02/24/24 14:28 50 meq STAT ONE Administration Sterile Water Confirm 02/24/24 14:30 Water For Injection,Sterile 10 Ml Vial Administered 02/24/24 14:31 Dose 10 ml IJ .STK-MED ONE Lab/Rad Data: Laboratory Result Diagrams 02/24/24 14:31 02/24/24 14:31 Laboratory Results 02/24/24 02/24/24 02/24/24 Range/Units Unknown 18:30 18:15 WBC (4.23-9.07) x10^3/uL RBC (4.63-6.08) x10^6/uL Hgb (13.7-17.5) g/dL Hct (40.1-51.0) % MCV (79.0-92.2) fL MCH (25.7-32.2) pg MCHC (32.3-36.5) g/dL RDW (11.6-14.4) % Plt Count (163-337) x10^3/uL MPV (9.4-12.4) fL Gran % (34.0-67.9) % Immature Gran % (Auto) (0.001-0.429) % Nucleat RBC Rel Count (0.00-0.2) % Eos # (Auto) (0.04-0.54) x10^3/uL Immature Gran # (Auto) (0.001-0.031) x10^3u/L Absolute Lymphs (auto) (1.32-3.57) x10^3/uL Absolute Monos (auto) (0.30-0.82) x10^3/uL Absolute Nucleated RBC (0.00-0.012) x10^3u/L Lymphocytes % (21.8-53.1) % Monocytes % (5.3-12.2) % Eosinophils % (0.8-7.0) % Basophils % (0.2-1.2) % Absolute Granulocytes (1.78-5.38) x10^3/uL Basophils # (0.01-0.08) x10^3/uL D-Dimer (0.0-0.50) mg/L Puncture Site pCO2 (35-45) mmHg pO2 (75-100) mmHg Base Excess (-2.0-2.0) O2 Saturation (94-100) g/dF ABG pH (7.35-7.45) ABG HCO3 (22-28) ABG O2 Sat (Measured) (95-100) % Jose Test A-a Gradient a/A Ratio Hemoglobin Carboxyhemoglobin (0.0-6.9) % THgb Methemoglobin (1.4-1.5) % Potassium (3.5-5.1) Temperature C POC O2 Flow Rate % Sodium (135-145) mmol/L Chloride (98-107) mmol/L Carbon Dioxide (22-30) mmol/L Anion Gap (5-15) MEQ/L BUN (9-20) mg/dL Creatinine (0.66-1.25) mg/dL Estimated GFR ML/MIN Glucose (74-106) mg/dL Lactic Acid 1.8 (0.4-2.0) Calcium (8.4-10.2) mg/dL Magnesium (1.6-2.3) mg/dL Total Bilirubin (0.2-1.3) mg/dL AST (17-59) U/L ALT (0-50) U/L Alkaline Phosphatase (38-126) U/L Troponin I 0.053 H* (0.000-0.033) ng/mL NT-Pro-B Natriuret Pep (<300) pg/mL Serum Total Protein (6.3-8.2) g/dL Albumin (3.5-5.0) g/dL Influenza Type A Ag NEGATIVE (NEGATIVE) Influenza Type B Ag NEGATIVE (NEGATIVE) RSV (PCR) NEGATIVE (NEGATIVE) SARS-CoV-2 (PCR) NEGATIVE (NEGATIVE) 02/24/24 02/24/24 02/24/24 Range/Units 14:31 14:31 14:31 WBC (4.23-9.07) x10^3/uL RBC (4.63-6.08) x10^6/uL Hgb (13.7-17.5) g/dL Hct (40.1-51.0) % MCV (79.0-92.2) fL MCH (25.7-32.2) pg MCHC (32.3-36.5) g/dL RDW (11.6-14.4) % Plt Count (163-337) x10^3/uL MPV (9.4-12.4) fL Gran % (34.0-67.9) % Immature Gran % (Auto) (0.001-0.429) % Nucleat RBC Rel Count (0.00-0.2) % Eos # (Auto) (0.04-0.54) x10^3/uL Immature Gran # (Auto) (0.001-0.031) x10^3u/L Absolute Lymphs (auto) (1.32-3.57) x10^3/uL Absolute Monos (auto) (0.30-0.82) x10^3/uL Absolute Nucleated RBC (0.00-0.012) x10^3u/L Lymphocytes % (21.8-53.1) % Monocytes % (5.3-12.2) % Eosinophils % (0.8-7.0) % Basophils % (0.2-1.2) % Absolute Granulocytes (1.78-5.38) x10^3/uL Basophils # (0.01-0.08) x10^3/uL D-Dimer 1.66 H* (0.0-0.50) mg/L Puncture Site pCO2 (35-45) mmHg pO2 (75-100) mmHg Base Excess (-2.0-2.0) O2 Saturation (94-100) g/dF ABG pH (7.35-7.45) ABG HCO3 (22-28) ABG O2 Sat (Measured) (95-100) % Jose Test A-a Gradient a/A Ratio Hemoglobin Carboxyhemoglobin (0.0-6.9) % THgb Methemoglobin (1.4-1.5) % Potassium 4.3 (3.5-5.1) Temperature C POC O2 Flow Rate % Sodium 133 L (135-145) mmol/L Chloride 99 (98-107) mmol/L Carbon Dioxide 21 L (22-30) mmol/L Anion Gap 16.9 H (5-15) MEQ/L BUN 16 (9-20) mg/dL Creatinine 1.43 H (0.66-1.25) mg/dL Estimated GFR 55.4 ML/MIN Glucose 212 H (74-106) mg/dL Lactic Acid (0.4-2.0) Calcium 9.3 (8.4-10.2) mg/dL Magnesium 2.3 (1.6-2.3) mg/dL Total Bilirubin 2.10 H (0.2-1.3) mg/dL AST 43 (17-59) U/L ALT 32 (0-50) U/L Alkaline Phosphatase 60 (38-126) U/L Troponin I (0.000-0.033) ng/mL NT-Pro-B Natriuret Pep 40686 (<300) pg/mL Serum Total Protein 7.8 (6.3-8.2) g/dL Albumin 4.6 (3.5-5.0) g/dL Influenza Type A Ag (NEGATIVE) Influenza Type B Ag (NEGATIVE) RSV (PCR) (NEGATIVE) SARS-CoV-2 (PCR) (NEGATIVE) 02/24/24 02/24/24 02/24/24 Range/Units 14:31 14:27 14:12 WBC 13.1 H (4.23-9.07) x10^3/uL RBC 5.70 (4.63-6.08) x10^6/uL Hgb 15.0 (13.7-17.5) g/dL Hct 47.8 (40.1-51.0) % MCV 83.9 (79.0-92.2) fL MCH 26.3 (25.7-32.2) pg MCHC 31.4 L (32.3-36.5) g/dL RDW 19.5 H (11.6-14.4) % Plt Count 232 (163-337) x10^3/uL MPV 9.7 (9.4-12.4) fL Gran % 81.9 H (34.0-67.9) % Immature Gran % (Auto) 0.6 H (0.001-0.429) % Nucleat RBC Rel Count 0.0 (0.00-0.2) % Eos # (Auto) 0.28 (0.04-0.54) x10^3/uL Immature Gran # (Auto) 0.08 H (0.001-0.031) x10^3u/L Absolute Lymphs (auto) 1.22 L (1.32-3.57) x10^3/uL Absolute Monos (auto) 0.72 (0.30-0.82) x10^3/uL Absolute Nucleated RBC 0.00 (0.00-0.012) x10^3u/L Lymphocytes % 9.3 L (21.8-53.1) % Monocytes % 5.5 (5.3-12.2) % Eosinophils % 2.1 (0.8-7.0) % Basophils % 0.6 (0.2-1.2) % Absolute Granulocytes 10.68 H (1.78-5.38) x10^3/uL Basophils # 0.08 (0.01-0.08) x10^3/uL D-Dimer (0.0-0.50) mg/L Puncture Site pCO2 (35-45) mmHg pO2 (75-100) mmHg Base Excess (-2.0-2.0) O2 Saturation (94-100) g/dF ABG pH (7.35-7.45) ABG HCO3 (22-28) ABG O2 Sat (Measured) (95-100) % Jose Test A-a Gradient a/A Ratio Hemoglobin Carboxyhemoglobin (0.0-6.9) % THgb Methemoglobin (1.4-1.5) % Potassium (3.5-5.1) Temperature C POC O2 Flow Rate % Sodium (135-145) mmol/L Chloride (98-107) mmol/L Carbon Dioxide (22-30) mmol/L Anion Gap (5-15) MEQ/L BUN (9-20) mg/dL Creatinine (0.66-1.25) mg/dL Estimated GFR ML/MIN Glucose (74-106) mg/dL Lactic Acid 7.4 H (0.4-2.0) Calcium (8.4-10.2) mg/dL Magnesium (1.6-2.3) mg/dL Total Bilirubin (0.2-1.3) mg/dL AST (17-59) U/L ALT (0-50) U/L Alkaline Phosphatase (38-126) U/L Troponin I 0.016 (0.000-0.033) ng/mL NT-Pro-B Natriuret Pep (<300) pg/mL Serum Total Protein (6.3-8.2) g/dL Albumin (3.5-5.0) g/dL Influenza Type A Ag (NEGATIVE) Influenza Type B Ag (NEGATIVE) RSV (PCR) (NEGATIVE) SARS-CoV-2 (PCR) (NEGATIVE) 02/24/24 Range/Units 14:12 WBC (4.23-9.07) x10^3/uL RBC (4.63-6.08) x10^6/uL Hgb (13.7-17.5) g/dL Hct (40.1-51.0) % MCV (79.0-92.2) fL MCH (25.7-32.2) pg MCHC (32.3-36.5) g/dL RDW (11.6-14.4) % Plt Count (163-337) x10^3/uL MPV (9.4-12.4) fL Gran % (34.0-67.9) % Immature Gran % (Auto) (0.001-0.429) % Nucleat RBC Rel Count (0.00-0.2) % Eos # (Auto) (0.04-0.54) x10^3/uL Immature Gran # (Auto) (0.001-0.031) x10^3u/L Absolute Lymphs (auto) (1.32-3.57) x10^3/uL Absolute Monos (auto) (0.30-0.82) x10^3/uL Absolute Nucleated RBC (0.00-0.012) x10^3u/L Lymphocytes % (21.8-53.1) % Monocytes % (5.3-12.2) % Eosinophils % (0.8-7.0) % Basophils % (0.2-1.2) % Absolute Granulocytes (1.78-5.38) x10^3/uL Basophils # (0.01-0.08) x10^3/uL D-Dimer (0.0-0.50) mg/L Puncture Site RIGHT BRACHIAL pCO2 46 H (35-45) mmHg pO2 54 L (75-100) mmHg Base Excess -10.0 L (-2.0-2.0) O2 Saturation 78.3 L (94-100) g/dF ABG pH 7.20 L* (7.35-7.45) ABG HCO3 18.0 L (22-28) ABG O2 Sat (Measured) 79.3 L (95-100) % Jose Test NOT APPLICABLE A-a Gradient 117 a/A Ratio 0.32 Hemoglobin 15.4 Carboxyhemoglobin 1.3 (0.0-6.9) % THgb Methemoglobin 0.0 L (1.4-1.5) % Potassium 4.5 (3.5-5.1) Temperature 37.0 C POC O2 Flow Rate 32 % Sodium (135-145) mmol/L Chloride (98-107) mmol/L Carbon Dioxide (22-30) mmol/L Anion Gap (5-15) MEQ/L BUN (9-20) mg/dL Creatinine (0.66-1.25) mg/dL Estimated GFR ML/MIN Glucose (74-106) mg/dL Lactic Acid (0.4-2.0) Calcium (8.4-10.2) mg/dL Magnesium (1.6-2.3) mg/dL Total Bilirubin (0.2-1.3) mg/dL AST (17-59) U/L ALT (0-50) U/L Alkaline Phosphatase (38-126) U/L Troponin I (0.000-0.033) ng/mL NT-Pro-B Natriuret Pep (<300) pg/mL Serum Total Protein (6.3-8.2) g/dL Albumin (3.5-5.0) g/dL Influenza Type A Ag (NEGATIVE) Influenza Type B Ag (NEGATIVE) RSV (PCR) (NEGATIVE) SARS-CoV-2 (PCR) (NEGATIVE) - Progress Progress Note: 02/24/24 18:42 Patient was seen and evaluated for acute hypoxia tachypnea and dyspnea, he was placed on BiPAP immediately upon presentation he was given Lasix nitroglycerin, DuoNebs and steroid. To which she responded well. Labs were obtained, chest x-ray and PE study was obtained. PE study suggestive of right middle lobe and right lower lobe infiltrate. For which she was treated with Zosyn and Zithromax Patient was informed of the need for admission he is agreeable. I will speak to the hospitalist on-call who will be updated with the patient's lab results and CT results. And current vital sign. Patient and family have no further questions at this time and are agreeable with the admission. patient's repeat troponin is elevated. He is not complaining of chest pain. However given his cardiac history. Decision was made to transfer him to a tertiary care center. I spoke to Dr. Jimenez the accepting physician. He was updated with the patient's elevated cardiac enzymes and current therapies including medications CT report and the patient is requiring BiPAP. He will accept the patient as a transfer 02/24/24 19:27 Medical Desision Making - Discussion of managment Reviewed:: Need for additional workup Agreed on:: decision to admit Will see patient: in hospital - Departure Departure Disposition: Transfer (104 minutes) Clinical Impression: Acute dyspnea, Acute respiratory failure with hypoxia, Peribronchial pneumonia, Bronchospasm Condition: Stable Critical Care Time: Yes Critical Care Time(excluding separately billable procedures): Critical 75-104 mins (102 minutes) Referrals: DOCTOR,NO FAMILY [Primary Care Provider] - Follow up/PCP as directed
[2024-02-24] MEDS: DUONEB 0.5-3 MG/3 ml Neb IH SCH (19:16)
[2024-02-24] MEDS ORDERED: Sodium Chloride 0.9% 10 ML FLUSH Syringe IV SCH (22:00)
[2024-02-24] MEDS ORDERED: Ativan 2 MG/1 ML VIAL ONE (22:32)
[2024-02-24] MEDS: Ativan 2 MG/1 ML VIAL IV ONE (22:33)
[2024-02-24 23:02] VITALS: BP 131/108
[2024-02-24 23:04] VITALS: PULSE 122; RESP 32; O2SAT 96
--- NOTE | 2024-02-25 08:44 | XRAY ---
Indication: Elevated d-dimer. Pulmonary embolus. Multiple contiguous axial images obtained through the chest using 80 cc Isovue 370 contrast and PE protocol. Comparison: None Good opacification pulmonary arteries. However mild diffuse respiration artifact limits evaluation of the more distal lobar and segmental branches. No obvious pulmonary embolus. Heart not enlarged with prior aortic/mitral valve replacement. Aorta is normal in course and caliber. No pathologic mediastinal/hilar lymphadenopathy. Lungs demonstrates mild diffuse pulmonary emphysema and minimal bilateral dependent atelectasis. The subtle patchy groundglass airspace disease seen in right middle and left lower lobe. No consolidation or effusion. Bony thorax intact with mild degenerative changes throughout spine and sternotomy wires. Limited upper abdomen including adrenal glands are unremarkable. Impression: 1. Respiration artifact limits evaluation for pulmonary embolus. No obvious pulmonary embolus. 2. Subtle patchy groundglass airspace disease in right middle and left lower lobes. 3. Chronic findings including pulmonary emphysema, postsurgical changes, and degenerative spondylosis.
[2024-02-25] MEDS ORDERED: Zithromax 500 MG/ 250 ML NaCl Premix 500 MG/250 ML IVPB IV SCH (10:00)
[2024-02-25] MEDS ORDERED: ROCEPHIN 1 GM / 100 ML NaCl 1 GM/100 ML IVPB IV SCH (10:00)
== END 2024-02-24 23:00 | disposition short-term general hospital (02) ==
LOC: ED 14:10
DX: J96.01 Acute respiratory failure with hypoxia (principal); J18.8 Other pneumonia, unspecified organism; J98.01 Acute bronchospasm
CPT/HCPCS: 0241U; 36415; 36600; 71045; 71260; 80053; 82375; 82803; 83605; 83735; 83880; 84484; 85025; 85379; 87040; 94002; 94640; 96365; 96367; 96374; 96375; 99291; 99292; 99285; J0456; J1940; J2060; J2919; A9270-GY; J3475